=== PATIENT | male | born 1970 | race Caucasian/White ===

== ENCOUNTER → 2016-11-09 | Outpatient (CLI) | payer OTHER | END | disposition home or self-care (01) | LOC: EKG 11:18 | PROVIDERS: ATTEND Internal Medicine Cardiovascular Disease | DX: R00.2 Palpitations (principal) | CPT/HCPCS: 93225 ==

== ENCOUNTER 2017-02-18 09:59 | Observation (INO) | payer OTHER ==
[2017-02-18] VITALS (11 sets, daily range): BP systolic 104–133; BP diastolic 68–96
[~2017-02-18] VITALS: Ht 175.3 cm; Wt 86.2 kg
[2017-02-18 10:40] LABS: HEMATOCRIT 39.8 % (39.0-53.0); HEMOGLOBIN 13.6 g/dL (13.0-17.5); RED BLOOD COUNT 4.56 x10^6/uL (4.30-5.70); WHITE BLOOD COUNT 10.8 x10^3/uL (4.0-11.0)
[2017-02-18 10:41] LABS: RED CELL DISTRIBUTION WIDTH 14.2 % (11.5-14.5)
[2017-02-18] MEDS ORDERED: PRAS10TA9 PO (10:43)
[2017-02-18] MEDS ORDERED: LISI10TA2 PO (10:43)
[2017-02-18] MEDS ORDERED: PANT40TA5 PO (10:45)
[2017-02-18] MEDS ORDERED: BUPR100T11 PO (10:45)
[2017-02-18] MEDS ORDERED: SPIR25TA3 PO (10:46)
[2017-02-18] MEDS ORDERED: ASPI81TA2 PO (10:46)
[2017-02-18] MEDS ORDERED: CARV3.122 PO (10:47)
[2017-02-18] MEDS ORDERED: ATOR40TA59 PO (10:47)
[2017-02-18 10:48] LABS: CALCIUM 9.2 mg/dL (8.5-10.1); CREATININE 1.2 mg/dL (0.7-1.3); GFR 65.8; POTASSIUM 4.4 mmol/L (3.5-5.1)
[2017-02-18 10:51] LABS: PROTHROMBIN TIME PATIENT 12.8 SEC (11.7-14.0)
[2017-02-18] MEDS ORDERED: LIDOCAINE 2% 20 ML VIAL. ONE (12:30)
[2017-02-18] MEDS ORDERED: VERAPAMIL 5 MG/2 ML VIAL. ONE (12:37)
[2017-02-18] MEDS ORDERED: MIDAZOLAM HCL/PF 5 MG/5 ML VIAL. ONE (12:37)
[2017-02-18] MEDS ORDERED: NITROGLYCERIN 200 MCG/2 ML SYRINGE FOR CATH/VASC LAB. ONE (12:37)
[2017-02-18] MEDS ORDERED: HEPARIN for IV BOLUS 10,000 UNIT/10 ML VIAL. ONE (12:37)
[2017-02-18] MEDS ORDERED: fentaNYL PF VIAL 250 MCG/5 ML VIAL ONE (12:37)
[2017-02-18] MEDS ORDERED: BIVALIRUDIN 250 MG VIAL. IV ONE ×2 (12:57→13:30)
[2017-02-18] MEDS ORDERED: IODIXANOL 320 MG/ML 100 ML VIAL. IART ONE ×2 (13:00→13:45)
[2017-02-18] MEDS ORDERED: LIDOCAINE 2% 20 ML VIAL. IJ ONE (13:00)
[2017-02-18] MEDS ORDERED: NITROGLYCERIN 200 MCG/2 ML SYRINGE FOR CATH/VASC LAB. IART ONE (13:00)
[2017-02-18] MEDS ORDERED: HEPARIN for IV BOLUS 10,000 UNIT/10 ML VIAL. IART ONE (13:00)
[2017-02-18] MEDS ORDERED: fentaNYL PF VIAL 250 MCG/5 ML VIAL IV ONE (13:00)
[2017-02-18] MEDS ORDERED: VERAPAMIL 5 MG/2 ML VIAL. IART ONE (13:00)
[2017-02-18] MEDS ORDERED: MIDAZOLAM HCL/PF 5 MG/5 ML VIAL. IV ONE (13:00)
[2017-02-18] MEDS ORDERED: IOHEXOL 300 MG/ML 100ML VIAL. ONE (13:07)
[2017-02-18] MEDS ORDERED: IOHEXOL 300 MG/ML 100ML VIAL. IART ONE (13:15)
[2017-02-18] MEDS ORDERED: ASPIRIN 325 MG TABLET ONE (13:35)
[2017-02-18] MEDS ORDERED: PRASUGREL 10 MG TABLET. ONE (13:35)
[2017-02-18] MEDS ORDERED: ACETAMINOPHEN 325 MG TABLET. PO PRN (13:45)
[2017-02-18] MEDS ORDERED: PRASUGREL 10 MG TABLET. PO ONE (13:45)
[2017-02-18] MEDS ORDERED: NITROGLYCERIN SUBLINGUAL 0.4 MG BOTTLE OF 25. SL PRN (13:45)
[2017-02-18] MEDS ORDERED: ASPIRIN 325 MG TABLET PO ONE (13:45)
--- NOTE | 2017-02-18 14:22 | CARD ---
APPROVED REPORT Procedure(s) performed: 1. Left heart catheterization, selective coronary angiography and left ventr iculography via right transradial approach 2. Successful PCI/drug eluting stents placement to the right coronary and left anterior descending a rteries. INDICATION The indication(s) include : unstable angina . PROCEDURE NARRATIVE After explaining the risks, benefits and alternative options, informed consent was obtained from catherine ent. Patient was brought to the cardiac Collection Systems Administrator and right wrist was prepped and draped in the usual fashion after confirming a positive modified Humberto's test. Arterial access was obtained in the [facility] radial artery and a 6 Lao sheath was inserted. 6 Lao JL 3.5 and 6 Lao John catheter wer e used to perform selective angiography of the left and right coronary arteries. 6 Lao pigtail ca theter was used to perform left ventriculography. The following findings were noted. FINDINGS 1. Hemodynamics: Left ventricular end-diastolic pressure of 34 mmHg. Peak to peak pullback gradient of 20 mmHg across the aortic valve. 2. Left ventriculography: Diaphragmatic wall hypokinesis with ejection fraction estimated at 40-45%. No significant mitral regurgitation seen. 3. Coronary angiography: a. The left main coronary artery arose from the left sinus of Valsalva, gave rise to the left anteri or descending and left circumflex arteries and did not show any significant stenosis. b. The left anterior descending artery showed 70-80% stenosis in the midsegment. c. The left circumflex artery did not show any significant stenosis. d. The right coronary artery was a large and dominant vessel arising from the right sinus of Valsalv a that showed patent stents in the mid to distal segments and also the proximal segments of the poste rior descending and posterolateral branches. The proximal segment however showed 90% stenosis. INTERVENTION The right coronary artery was engaged with a 6 Lao JR4 guide catheter and the stenosis in the prox imal segment was crossed with a 0.014 inch MyNines guidewire. This was treated with a 3.5 x 18 mm Xience Alpine drug-eluting stent was postdilated with a 4.5 x 12 mm NC Trek noncompliant balloon. Follow-up angiography showed resolution of the stenosis to 0% with JIMMIE-3 distal flow. Subsequently, the left main coronary artery was engaged with a 6 Lao EBU 3.0 guide catheter after initial attem pts to engage this with XB 3.5 guide catheter was unsuccessful. The stenosis in left anterior descend ing artery was crossed with the same prowater guidewire and treated successfully with a 3.25 x 23 mm Xience Alpine drug-eluting stent. Follow-up angiography showed resolution of the stenosis to 0% with JIMMIE-3 distal flow. Patient tolerated the procedure well. Hemostasis was achieved using TR band. Ther e were no immediate complications. Conclusion 1. Severe two-vessel coronary artery disease involving the proximal segment of right coronary artery and midsegment of the left anterior descending artery. The previously placed stents in the mid to di stal segments of RCA and the proximal segments of PDA and PLB were patent. 2. Successful PCI/drug eluting stents placement to the right coronary and left anterior descending a rteries. 3. Diaphragmatic wall hypokinesis with ejection fraction estimated at 40-45%. Recommendations 1. Aspirin 325 mg daily 2. Effient 10 mg daily for preferably one year 3. Cardiovascular risk factor modification.
--- NOTE | 2017-02-18 15:52 | PDOC ---
MODERATE SEDATION ASSESSMENT RISKS/ALTERNATIVES Risks/Alternatives Risks and alternatives of this type of sedation and procedure discussed with: RISK/ALTERNATIVES: Patient H & P ON CHART H & P H & P on chart and reviewed for co-morbid conditions and appropriate labs. H&P ON CHART: Yes STATUS PREG STATUS ASSESSED: N/A MEDS/ALLERGIES REVIEWED Meds/Allergies Reviewed Medications and Allergies including time and route of recently administered narcotics and sedatives. MEDS/ALLERGIES REVIEWED: Yes ASA RATING ASA RATING: II AIRWAY ASSESSMENT Airway Assessment Airway patency, oral function limitations, presence of caps, crowns, dentures, partials, and ability to extend neck assessed. AIRWAY ASSESSMENT: Yes MALLAMPATI SCORE MALLAMPATI SCORE: II PRE-SEDATION ASSESSMENT PRE-SEDATION ASSESSMENT: Yes JENNIE COY MD Feb 18, 2017 15:52
[2017-02-18] MEDS: IV 1/2 NORMAL SALINE 1,000 ML IV SCH (15:54)
[2017-02-18] MEDS: CARVEDILOL 3.125 MG TABLET. PO SCH (18:30)
[2017-02-18] MEDS ORDERED: ATORVASTATIN CALCIUM 40 MG TABLET. PO SCH ×2 (21:00)
[2017-02-18] MEDS: buPROPion 100 MG TABLET PO SCH (21:14)
[2017-02-19 03:00] VITALS: BP 112/67
[2017-02-19] MEDS: IV 1/2 NORMAL SALINE 1,000 ML IV SCH (03:30)
[2017-02-19 07:00] VITALS: BP 128/73
[2017-02-19] MEDS ORDERED: PANTOPRAZOLE 40 MG TABLET.DR. PO SCH (07:30)
[2017-02-19] MEDS ORDERED: PRASUGREL 10 MG TABLET. PO SCH (08:00)
[2017-02-19] MEDS ORDERED: ASPIRIN ENTERIC COATED 325 MG TABLET.DR. PO SCH (08:00)
[2017-02-19 08:54] VITALS: BP 128/73
[2017-02-19] MEDS: buPROPion 100 MG TABLET PO SCH (08:58)
[2017-02-19 08:59] VITALS: BP 128/73
[2017-02-19] MEDS: CARVEDILOL 3.125 MG TABLET. PO SCH (08:59)
[2017-02-19] MEDS ORDERED: SPIRONOLACTONE 25 MG TABLET PO SCH (09:00)
[2017-02-19] MEDS ORDERED: LISINOPRIL 10 MG TABLET PO SCH (09:00)
--- NOTE | 2017-02-19 10:49 | PDOC3 ---
Discharge Summary Visit Information Date of Admission: Feb 18, 2017 Date of Discharge: Feb 19, 2017 Admitting Diagnosis: unstable angina Final Diagnosis Problems Medical Problems: (1) Unstable angina pectoris Status: Acute S/P PCI/DEBBIE Brief Hospital Course Allergies Allergies Coded Allergies Type Severity Reaction Last Updated Verified No Known Drug Allergies 02/18/17 No Vital Signs Vital Signs Date Time Temp Pulse Resp B/P Pulse Ox O2 Delivery O2 Flow Rate FiO2 02/19/17 08:59 83 128/73 02/19/17 08:54 19 95 Room Air 02/19/17 08:00 2.0 02/19/17 03:00 98.1 98.1 Lab Results Laboratory Tests Test 02/18/17 10:30 White Blood Count 10.8x10^3/uL (4.0-11.0) Red Blood Count 4.56x10^6/uL (4.30-5.70) Hemoglobin 13.6g/dL (13.0-17.5) Hematocrit 39.8% (39.0-53.0) Mean Corpuscular Volume 87fL (79-100) Mean Corpuscular Hemoglobin 30pg (25-35) Mean Corpuscular Hemoglobin Concent 34g/dL (31-37) Red Cell Distribution Width 14.2% (11.5-14.5) Platelet Count 197x10^3/uL (140-400) Prothrombin Time 12.8SEC (11.7-14.0) Prothromb Time International Ratio 1.0 (0.8-1.1) Sodium Level 138mmol/L (136-145) Potassium Level 4.4mmol/L (3.5-5.1) Chloride Level 103mmol/L (98-107) Carbon Dioxide Level 26mmol/L (21-32) Anion Gap 9 (6-14) Blood Urea Nitrogen 16mg/dL (8-26) Creatinine 1.2mg/dL (0.7-1.3) Estimated GFR (Cockcroft-Gault) 65.8 Glucose Level 136mg/dL (70-99) Calcium Level 9.2mg/dL (8.5-10.1) Brief Hospital Course This is a pleasant 46 yo male admitted for planned C. He was seen in our office and was noted with possible unstable angina symptoms. Prior to this he had 2 episodes PCI/stenting in 2016 with most recent to the RCA. Upon C he has been noted with significant lesions to his RCA and LAD with previously placed patent stents in the mid to distal segments of RCA and the proximal segments of PDA and PLB. PCI/DEBBIE to the proximal segment of RCA and midsegment of the LAD were achieved. Notable EF of 40-45%. Pt tolerated procedure well. I had a long discussion with him in regards to treatment compliance and lifestyle modifications. Pt is to continue effient with ECASA 325 mg. Discussed post cath instructions and continued cardiac rehab. Pt did well overnight, no CP, SOA, and ambulatory without difficulty, SR without significant rhythm ectopies. VSS. Right wrist arteriotomy site intact with no erythema or swelling and neurovascular status is intact as well. Pt is to follow up in our office in 4-5 weeks time. Discharge Information Condition at Discharge: Stable Follow Up: Weeks (4) Disposition/Orders: D/C to Home Scheduled Aspirin (Aspirin Ec) 1 TAB PO DAILY Atorvastatin Calcium (Atorvastatin Calcium) 1 TAB PO QHS (Reported) Bupropion Hcl (Bupropion Hcl) 100 MG PO BID (Reported) Carvedilol (Carvedilol) 1 TAB PO BID (Reported) Lisinopril (Lisinopril) 1 TAB PO DAILY (Reported) Pantoprazole Sodium (Pantoprazole Sodium) 1 TAB PO DAILY (Reported) Prasugrel Hcl (Effient) 10 MG PO DAILY (Reported) Spironolactone (Spironolactone) 1 TAB PO BID (Reported) Discontinued Medications Aspirin (Aspirin) 1 TAB PO DAILY (Reported) Patient Instructions Patient Instructions GENERAL INSTRUCTIONS: 1. Your dressing should be removed prior to leaving the hospital. 2. It is OK to shower the day after your procedure. 3. If you received stents, be sure to carry your stent information card with you in your wallet/purse at all times. 4. Call the office immediately at [phone] if you notice any fever or if there is redness, worsening tenderness/pain, increased bruising, or drainage from the puncture site. 5. Should you have bleeding from the site, lie down immediately & put pressure on the site. The pressure should be hard enough to stop the bleeding. Have the nearest person call [phone]. DO NOT try to drive to the ER with active bleeding. 6. If you notice a change in color, coolness to touch, or loss of feeling in the affected extremity, come to the emergency room. Please have someone drive you or call 911 if no one is available. DO NOT drive yourself. 7. If you normally take glucophage (metformin), please do not take this medicine for 48 hours following your procedure. 8. DO NOT STOP TAKING YOUR PLAVIX OR ASPIRIN UNLESS IT IS CLEARED BY A CASH REGISTER SERVICER OF YOUR SECOND CLASS WELDER AT OUR OFFICE. 9. QUIT SMOKING: the [place] [employer], [employer], & [employer] [employer] have cessation resources available on their websites 10. Please have someone available to drive you home from the hospital as you may be limited by sedation medications given during the procedure. Radial Artery (Wrist) access: 1. No pushing, pulling, lifting, typing, or anything that requires repetitive use/movement of the affected wrist for 3 days following your procedure. 2. OK to drive the day following your procedure. (This is because of effects of sedating medications.) Call the office at [phone] for any questions or concerns. FRANK DEL VALLE [employer]VAGE INS[employer] Feb 19, 2017 10:49
[2017-02-19] MEDS ORDERED: CLOP75TA PO (10:51)
[2017-02-19] MEDS ORDERED: ASPI325T11 PO (10:51)
[2017-02-20] MEDS ORDERED: ASPIRIN CHEWABLE 81 MG TABLET. PO SCH (09:00)
[2017-02-20] MEDS ORDERED: PRASUGREL 10 MG TABLET. PO SCH (09:00)
== END 2017-02-19 12:13 | disposition home or self-care (01) ==
LOC: CCL 09:59 → 2 SOUTH 13:05
PROVIDERS: ADMIT Internal Medicine Cardiovascular Disease; ATTEND Internal Medicine Cardiovascular Disease
DX: I20.0 Unstable angina (principal)
CPT/HCPCS: 36415; 80048; 85027; 85610; 92928; 93458; 96374; 96375; C1769; C1874; C1887; C1892; G0378; G0379; J0583; J2250; J3010; J3490; Q9967

== ENCOUNTER → 2018-06-07 | Outpatient (CLI) | payer OTHER ==
[~2018-06-07] MED LIST: IOHEXOL 300 MG/ML 100ML VIAL.; MIDAZOLAM HCL/PF 2 MG/2 ML VIAL.; fentaNYL PF VIAL 100 MCG/2 ML VIAL
== END | disposition home or self-care (01) ==
LOC: US 07:57
DX: I70.293 Other atherosclerosis of native arteries of extremities, bilateral legs (principal); I10 Essential (primary) hypertension; I25.10 Atherosclerotic heart disease of native coronary artery without angina pectoris; Z95.5 Presence of coronary angioplasty implant and graft
CPT/HCPCS: 93925

== ENCOUNTER 2018-06-09 09:33 | Outpatient (CLI) | payer OTHER ==
[2018-06-09] MEDS ORDERED: LIDOCAINE 1% PF 30 ML VIAL. (09:38)
[2018-06-09 10:04] LABS: HEMATOCRIT 43.4 % (39.0-53.0); HEMOGLOBIN 15.2 g/dL (13.0-17.5); MEAN CORPUSCULAR HEMOGLOBIN 31 pg (25-35); MEAN CORPUSCULAR HGB CONC 35 g/dL (31-37); MEAN CORPUSCULAR VOLUME 90 fL (79-100); PLATELET COUNT 193 x10^3/uL (140-400); RED BLOOD COUNT 4.85 x10^6/uL (4.30-5.70); RED CELL DISTRIBUTION WIDTH 12.6 % (11.5-14.5); WHITE BLOOD COUNT 8.7 x10^3/uL (4.0-11.0)
[2018-06-09 10:09] LABS: PARTIAL THROMBOPLASTIN TIME 26 SEC (24-38); PROTHROMBIN TIME PATIENT 13.1 SEC (11.7-14.0)
[2018-06-09 10:15] LABS: ANION GAP 8 (6-14); BLOOD UREA NITROGEN 15 mg/dL (8-26); CALCIUM 8.9 mg/dL (8.5-10.1); CARBON DIOXIDE 27 mmol/L (21-32); CHLORIDE 104 mmol/L (98-107); GFR 80.8; GLUCOSE 126 mg/dL (70-99); SODIUM 139 mmol/L (136-145)
[2018-06-09] MEDS: IOHEXOL 300 MG/ML 100ML VIAL. IART (12:00)
[2018-06-09] MEDS: MIDAZOLAM HCL/PF 2 MG/2 ML VIAL. IV (12:00)
[2018-06-09] MEDS: VERAPAMIL 5 MG/2 ML VIAL. IART (12:00)
[2018-06-09] MEDS: fentaNYL PF VIAL 100 MCG/2 ML VIAL IV (12:00)
[2018-06-09] MEDS: LIDOCAINE 1% PF 2 ML VIAL. INJ (12:00)
[2018-06-09] MEDS: HEPARIN for IV BOLUS 10,000 UNIT/10 ML VIAL. IART (12:00)
[2018-06-09] MEDS: NITROGLYCERIN 200 MCG/2 ML SYRINGE FOR CATH/VASC LAB. IART (12:00)
[2018-06-09] MEDS ORDERED: CONTRAST GIVEN. MC (12:15)
[2018-06-09] MEDS: IV 1/2 NORMAL SALINE 1,000 ML IV (13:40)
== END 2018-06-09 16:15 | disposition home or self-care (01) ==
LOC: ECHO 09:33
DX: I25.110 Atherosclerotic heart disease of native coronary artery with unstable angina pectoris (principal); I25.5 Ischemic cardiomyopathy; I10 Essential (primary) hypertension; Z95.5 Presence of coronary angioplasty implant and graft
CPT/HCPCS: 36415; 80048; 85027; 85610; 85730; 93306; 93458; 99152; C1769; C1892; J1644; J2250; J3010; J3490; Q9967

== ENCOUNTER 2019-04-01 02:07 | Inpatient (IN) | payer OTHER, SELFPAY ==
[~2019-04-01] VITALS: Ht 175.3 cm; Wt 79.9 kg
[2019-04-01] VITALS (17 sets, daily range): BP systolic 112–155; BP diastolic 52–88
[~2019-04-01 02:07] MED LIST changes: +ALBU2.5V8 INH; +ASPI-630 PO; +ASPI325T11 PO; +ATOR40TA59 PO; +BUPR100T11 PO; +BUPR150T8 PO; +CARV3.1210 PO; +CLOP75TA PO; -IOHEXOL 300 MG/ML 100ML VIAL.; +LISI10TA2 PO; -MIDAZOLAM HCL/PF 2 MG/2 ML VIAL.; +PANT40TA5 PO; +PRAS10TA9 PO; +SPIR25TA5 PO; -fentaNYL PF VIAL 100 MCG/2 ML VIAL
[2019-04-01] MEDS ORDERED: IV NORMAL SALINE 1000ML BAG 1,000 ML IV ONE (02:30)
[2019-04-01 04:06] LABS: BASO % 0 % (0-3); EOS # 0.2 x10^3/uL (0.0-0.7); EOS % 2 % (0-3); HEMOGLOBIN 14.6 g/dL (13.0-17.5); LYMPH # 1.5 x10^3/uL (1.0-4.8); LYMPH % 14 % (24-48); MEAN CORPUSCULAR HEMOGLOBIN 31 pg (25-35); MEAN CORPUSCULAR HGB CONC 35 g/dL (31-37); MEAN CORPUSCULAR VOLUME 88 fL (79-100); MONO # 0.5 x10^3/uL (0.0-1.1); MONO % 5 % (0-9); NEUT # 8.2 x10^3uL (1.8-7.7); NEUT % 78 % (31-73); PLATELET COUNT 178 x10^3/uL (140-400); RED BLOOD COUNT 4.76 x10^6/uL (4.30-5.70); RED CELL DISTRIBUTION WIDTH 13.7 % (11.5-14.5); WHITE BLOOD COUNT 10.5 x10^3/uL (4.0-11.0)
[2019-04-01 04:26] LABS: PROTHROMBIN TIME PATIENT 13.7 SEC (11.7-14.0)
[2019-04-01 04:28] LABS: CALCIUM 8.6 mg/dL (8.5-10.1); CREATININE 0.9 mg/dL (0.7-1.3); GFR 90.8; POTASSIUM 3.6 mmol/L (3.5-5.1)
[2019-04-01 04:34] LABS: ALBUMIN 3.7 g/dL (3.4-5.0); ALBUMIN/GLOBULIN RATIO 0.9 (1.0-1.7); MAGNESIUM 1.9 mg/dL (1.8-2.4); TOTAL BILIRUBIN 0.3 mg/dL (0.2-1.0); TOTAL PROTEIN 7.7 g/dL (6.4-8.2)
[2019-04-01 05:02] LABS: BARBITURATES NEG (NEG); BENZODIAZEPINES NEG (NEG); CANNABINOIDS NEG (NEG); COCAINE NEG (NEG); METHADONE NEG (NEG); OPIATES NEG (NEG); PHENCYCLIDINE NEG (NEG)
[2019-04-01 05:03] LABS: AMPHETAMINE/METHAMPHETAMINE NEG (NEG)
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
--- NOTE | 2019-04-01 07:49 | RAD ---
Examination: CT head and cervical spine without contrast History: Blunt trauma Comparison: None available Technique: Axial CT images of the head and cervical spine were performed without contrast. Coronal and sagittal reformats of the cervical spine were performed. PQRS Compliance Statement: One or more of the following individualized dose reduction techniques were utilized for this examination: 1. Automated exposure control 2. Adjustment of the mA and/or kV according to patient size 3. Use of iterative reconstruction technique Findings: There is no evidence of midline shift. There is mild hyperdensity identified in the subarachnoid space off for a right, left frontal lobes likely mild subarachnoid bleed with small amount of blood in the anterior falx and right frontal subdural space likely bleed. Punctate foci of bleed identified in the right and left frontal lobes likely tiny foci of parenchymal bleed. The lateral ventricles, third ventricle, fourth ventricle are proper for age. The basal cisterns are uneffaced There is nondisplaced vertical fracture of the right occipital skull bone extending inferiorly to the foramen magnum region on the right. The cervical vertebral body heights are maintained. The bilateral facets are well aligned. There is mild intervertebral disc height loss identified in the cervical spine particularly at C5-C6, C6-C7 vertebral level. No evidence of prevertebral soft tissue swelling identified. Impression: 1. Mild subarachnoid bleed in the bilateral frontal lobes with the minimal subdural bleed in the right extra-axial frontal region and the anterior falx region. Tiny punctate foci of intraparenchymal bleed identified in the right and left frontal lobes probably secondary to injury. 2. Nondisplaced fracture of the right occipital skull bone. No obvious acute fracture of the cervical spine. Correlate clinically. was informed at time of dictation.
--- NOTE | 2019-04-01 07:53 | RAD ---
Examination: CT maxillofacial bones without contrast History: History of injury Comparison: None available PQRS Compliance Statement: One or more of the following individualized dose reduction techniques were utilized for this examination: 1. Automated exposure control 2. Adjustment of the mA and/or kV according to patient size 3. Use of iterative reconstruction technique Findings: Mild nondisplaced fracture of the left nasal bone identified. The bilateral orbital globes appear intact. The bilateral orbital blount appear intact. The visualized paranasal sinuses, mastoid air cells are clear. The partially visualized right occipital skull bone fracture identified. The bilateral pterygoid plates, zygomatic arches appear intact. Lucencies identified in the mandibular and maxillary teeth likely dental disease. Impression: 1. Nondisplaced fracture of the left nasal bone. 2. Partially visualized right occipital skull bone nondisplaced fracture.
[2019-04-01] MEDS ORDERED: DIPHTH,PERTUSS(ACELL),TET TOX 0.5 ML DISP.SYRIN. VAX IM ONE (08:00)
[2019-04-01] MEDS ORDERED: IV NORMAL SALINE 1000ML BAG 1,000 ML IV SCH (08:35)
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
[2019-04-01] MEDS: HYDROcodone/APAP 7.5/325MG 1 TAB TABLET PO PRN ×2 (13:26→18:01)
[2019-04-01] MEDS ORDERED: MULTIVIT INFUSN,ADULT 4,VIT K 10 ML, THIAMINE INJ 100 MG, FOLIC ACID INJ 1 MG in IV NOR... IV ONE (13:30)
[2019-04-01] MEDS: NICOTINE 14MG PATCH. TD SCH (13:31)
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
--- NOTE | 2019-04-01 19:42 | NUR ---
banana bag per order w NS held till infused. Remains NPO
--- NOTE | 2019-04-01 20:24 | NUR ---
Nurse encouraged Pt to allow SCD's and Richardson hose to be put on. Pt refused stating "Those will drive me crazy." Pt told of importance of wearing these for VTE. Pt still refused.
[2019-04-02] VITALS (17 sets, daily range): BP systolic 114–163; BP diastolic 74–94
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
[2019-04-02] MEDS ORDERED: ALBUTEROL SULFATE 2.5 MG/3 ML NEBU. INH PRN (08:00)
[2019-04-02] MEDS: LISINOPRIL 10 MG TABLET PO SCH (09:43)
[2019-04-02] MEDS: CARVEDILOL 3.125 MG TABLET. PO SCH ×2 (09:43→18:01)
[2019-04-02] MEDS: PANTOPRAZOLE 40 MG TABLET.DR. PO SCH (09:43)
[2019-04-02] MEDS: SPIRONOLACTONE 25 MG TABLET PO SCH ×2 (09:44→20:46)
[2019-04-02] MEDS: buPROPion SR 150 MG TABLET.SA PO SCH ×2 (09:44→20:46)
[2019-04-02] MEDS: NICOTINE 14MG PATCH. TD SCH (09:44)
--- NOTE | 2019-04-02 11:53 | NUR ---
Bedside swallow evaluation and communication evaluation completed. Please refer to full reports for additional information. Impressions: Swallow: Oropharyngeal swallow appears function w/ low risk of aspiration anticipated for regular diet and thin liquids w/ general swallow precautions. Pt takes very large bites/drinks at times and would benefit from cues/reminders for general swallow precautions. Communication: Mild cognitive impairment w/ delayed and short term memory deficits. Speech/language and communication generally WFL. Pt and family report pt had some deficits in memory prior to this admission but feel memory is currently "a bit worse." Recommendations: When pt cleared by physician for diet recommend regular diet w/ thin liquids and general swallow precautions. ST for dysphagia f/u 1-2 visits for ongoing assessment of swallow safety. Additional ST f/u for cognitive deficits. D/w pt and family. D/w RN w/ plans for RN to d/ results w/ physician prior to starting diet.
--- NOTE | 2019-04-02 13:06 | RAD ---
EXAM: CT HEAD WITHOUT CONTRAST. HISTORY: Intracranial hemorrhage. TECHNIQUE: Computed tomography of the head was performed without intravenous contrast. COMPARISON: 04/01/2019. FINDINGS: A small amount of intraparenchymal hemorrhage is again noted along the anteroinferior aspect of the right frontal lobe suggesting a contusion. A small amount of intrahemispheric clot along the gyri recti posteriorly appears decreased. Mild mass effect consistent with edema is suspected along the right inferior frontal lobe. Rowe-white differentiation is preserved elsewhere. The ventricles are normal in size and position. The visualized paranasal sinuses appear clear. The orbits are unremarkable. The temporal bones are unremarkable. A nondisplaced right occipital fracture intersects the right lateral aspect of the foramen magnum. There is a small occipitoparietal scalp hematoma. IMPRESSION: 1. Stable bilateral inferior frontal contusions demonstrate a small amount of hemorrhage and mass effect. 2. A small amount of subarachnoid hemorrhage in the frontal interhemispheric fissure appears decreased. 3. Nondisplaced right occipital bone fracture. *One or more of the following individualized dose reduction techniques were utilized for this examination: 1. Automated exposure control. 2. Adjustment of the mA and/or kV according to patient size. 3. Use of iterative reconstruction technique. Electronically signed by: Jonathan Alberts MD (04/02/2019 1:04 PM) [facility]
--- NOTE | 2019-04-02 14:01 | NUR ---
Gene's office notified that CT head results in from AM scan- currently Gene in surgery, office noted they would notify him when out. Will continue current plan of care until can be cleared from neurosurgeon to eat.
--- NOTE | 2019-04-02 14:12 | NUR ---
Call received from Gene's office- patient okay to eat, and is okay to transfer to medical unit.
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
[2019-04-02] MEDS: HYDROcodone/APAP 7.5/325MG 1 TAB TABLET PO PRN (18:04)
[2019-04-02] MEDS ORDERED: ATORVASTATIN CALCIUM 40 MG TABLET. PO SCH (21:00)
[2019-04-03 03:50] VITALS: BP 124/74
[2019-04-03 07:00] VITALS: BP 137/81
[2019-04-03] MEDS: buPROPion SR 150 MG TABLET.SA PO SCH (08:18)
[2019-04-03] MEDS: CARVEDILOL 3.125 MG TABLET. PO SCH (08:18)
[2019-04-03] MEDS: LISINOPRIL 10 MG TABLET PO SCH (08:18)
[2019-04-03] MEDS: PANTOPRAZOLE 40 MG TABLET.DR. PO SCH (08:18)
[2019-04-03] MEDS: SPIRONOLACTONE 25 MG TABLET PO SCH (08:18)
[2019-04-03] MEDS: HYDROcodone/APAP 7.5/325MG 1 TAB TABLET PO PRN (08:19)
[2019-04-03] MEDS: NICOTINE 14MG PATCH. TD SCH (08:19)
[2019-04-03 11:00] VITALS: BP 119/77
[2019-04-03] MEDS ORDERED: ATOR40TA59 PO (12:59)
[2019-04-03] MEDS ORDERED: ASPI325T11 PO (12:59)
[2019-04-03] MEDS ORDERED: HYDR-2765 PO (12:59)
[2019-04-03] MEDS ORDERED: CARV3.1210 PO (12:59)
[2019-04-03] MEDS ORDERED: DOCUSATE SODIUM 100 MG CAPSULE. PO ONE (13:00)
[2019-04-03] MEDS ORDERED: DOCU-109 PO (13:00)
[2019-04-03] MEDS ORDERED: SENNOSIDES/DOCUSATE 8.6/50MG TABLET. PO ONE (13:00)
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
--- NOTE | 2019-04-03 14:27 | NUR ---
Pt discharged home with self care. Spoke to JOHANNA Caldwell she stated she will call and schedule a follow up CT with patient. IV removed. Discharge instructions and prescriptions discussed. Pt verbalized understanding. Pt taken via wheelchair to main entrance and was secured in vehicle with family member.
== END 2019-04-03 14:15 | disposition home or self-care (01) | DRG 84 ==
LOC: ER 02:07 → 1 WEST ICU 08:05 → 4 NORTH 04-02 16:11
PROVIDERS: ADMIT Internal Medicine; ATTEND Internal Medicine
DX: S06.6X9A Traumatic subarachnoid hemorrhage with loss of consciousness of unspecified duration, initial encounter (principal); S02.119A Unspecified fracture of occiput, initial encounter for closed fracture; F07.81 Postconcussional syndrome; S02.2XXA Fracture of nasal bones, initial encounter for closed fracture; R73.9 Hyperglycemia, unspecified; F10.129 Alcohol abuse with intoxication, unspecified; I25.10 Atherosclerotic heart disease of native coronary artery without angina pectoris; I11.0 Hypertensive heart disease with heart failure; I73.9 Peripheral vascular disease, unspecified; S00.93XA Contusion of unspecified part of head, initial encounter; S81.012A Laceration without foreign body, left knee, initial encounter; X58.XXXA Exposure to other specified factors, initial encounter; Z82.49 Family history of ischemic heart disease and other diseases of the circulatory system; Z87.891 Personal history of nicotine dependence; Z95.5 Presence of coronary angioplasty implant and graft; Y08.89XA Assault by other specified means, initial encounter; Y93.89 Activity, other specified; Y92.89 Other specified places as the place of occurrence of the external cause; Y99.8 Other external cause status; I50.9 Heart failure, unspecified
CPT/HCPCS: 36415; 70450; 70486; 72125; 80053; 80307; 83735; 85025; 85610; 85730; 87641; 90471; 90715; 99291; G0480; J7030; 92523; 92610; 97530

== ENCOUNTER 2020-06-17 05:32 | Inpatient (IN) | payer MEDICAID, OTHER ==
[2020-06-17] VITALS (15 sets, daily range): BP systolic 102–161; BP diastolic 61–84
[~2020-06-17] VITALS: Ht 175.3 cm; Wt 83.9 kg
[~2020-06-17 05:32] MED LIST changes: +CYCL10TA2 PO; +DOCU-109 PO; +HYDR-2765 PO; +NITR0.4T24 SL; -PANT40TA5 PO; +PANT40TA77 PO
[2020-06-17 06:27] LABS: BASO % 0 % (0-3); EOS # 0.4 x10^3/uL (0.0-0.7); EOS % 6 % (0-3); HEMOGLOBIN 15.5 g/dL (13.0-17.5); LYMPH # 2.1 x10^3/uL (1.0-4.8); LYMPH % 27 % (24-48); MEAN CORPUSCULAR HEMOGLOBIN 31 pg (25-35); MEAN CORPUSCULAR HGB CONC 34 g/dL (31-37); MEAN CORPUSCULAR VOLUME 91 fL (79-100); MONO # 0.7 x10^3/uL (0.0-1.1); MONO % 9 % (0-9); NEUT # 4.5 x10^3/uL (1.8-7.7); NEUT % 58 % (31-73); PLATELET COUNT 173 x10^3/uL (140-400); RED BLOOD COUNT 4.93 x10^6/uL (4.30-5.70); RED CELL DISTRIBUTION WIDTH 13.4 % (11.5-14.5); WHITE BLOOD COUNT 7.8 x10^3/uL (4.0-11.0)
[2020-06-17] MEDS ORDERED: NITROGLYCERIN OINT 1 GM PACKET. TP ONE (06:30)
[2020-06-17] MEDS ORDERED: ASPIRIN CHEWABLE 81 MG TABLET. PO ONE (06:30)
[2020-06-17 06:39] LABS: CREATININE 0.9 mg/dL (0.7-1.3); GFR 90.4; POTASSIUM 3.7 mmol/L (3.5-5.1)
--- NOTE | 2020-06-17 06:40 | RAD ---
INDICATION: Reason: chest pain / Spl. Instructions: / History: COMPARISON: November 14, 2019 FINDINGS: Single view of chest obtained. Hypoexpanded exam. Cardiac silhouette is mildly enlarged. Linear opacity left lower lung could be secondary to atelectasis. No definite consolidation elsewhere in the lungs. IMPRESSION: * Enlarged cardiac silhouette with linear atelectasis left lung base. Electronically signed by: Sabino Canchola MD (06/17/2020 6:37 AM) [id number]
[2020-06-17 06:45] LABS: PROTHROMBIN TIME PATIENT 12.2 SEC (11.7-14.0)
[2020-06-17 06:49] LABS: ALBUMIN 3.4 g/dL (3.4-5.0); ALBUMIN/GLOBULIN RATIO 0.9 (1.0-1.7); TOTAL BILIRUBIN 0.2 mg/dL (0.2-1.0); TOTAL PROTEIN 7.3 g/dL (6.4-8.2)
[2020-06-17] MEDS ORDERED: HEPARIN for IV BOLUS 10,000 UNIT/10 ML VIAL. IV ONE (07:00)
[2020-06-17] MEDS ORDERED: HEPARIN 25,000UTS/250ML PREMIX 250 ML IV PRN (07:00)
--- NOTE | 2020-06-17 07:23 | EKG ---
[facility] [address] [place] [address] Test Date: 2020-06-17 Test Time: 05:35:24 Pat Name: SAMSON HOPKINS Department: Room: Gender: M [employer] Supervisor: : 1970 Requested By: VI GUTIERREZ Order Number: [id number] Reading MD: Measurements Intervals [place] Rate: 73 P: 46 NH: 148 QRS: -40 QRSD: 80 T: 136 QT: 416 QTc: 462 Interpretive Statements SINUS RHYTHM CONSIDER LEFT VENTRICULAR HYPERTROPHY QRS(T) CONTOUR ABNORMALITY CONSIDER ANTEROSEPTAL MYOCARDIAL DAMAGE CONSISTENT WITH INFERIOR INFARCT PROBABLY OLD T ABNORMALITY IN ANTERIOR LEADS LATERAL LEADS ABNORMAL ECG RI6.01 No previous ECG available for comparison
[2020-06-17] MEDS ORDERED: fentaNYL PF VIAL 100 MCG/2 ML VIAL IV PRN (07:45)
[2020-06-17] MEDS ORDERED: ONDANSETRON PF 4 MG/2 ML VIAL. IV PRN (07:45)
--- NOTE | 2020-06-17 08:04 | PHYS DOC ---
Past Medical History Past Medical History: CAD, Hypertension Past Surgical History: Other Additional Past Surgical Histo: CARDIAC STENTS Smoking Status: Current Every Day Smoker Alcohol Use: Heavy Drug Use: None General Adult EDM: Chief Complaint: CHEST PAIN HPI: HPI: Patient is a 49-year-old male with a history of coronary disease status post cardiac stents x9 who continues to smoke. Patient presents today with chest discomfort. He states the pain is in his left chest and is typical of his previous chest pain requiring stenting. He does state he has been out rowing a canoe on the [place] recently and developed some pain with that as well. He denies any significant shortness of breath. He has not had any nausea or diaphoresis. He did take nitroglycerin x2 at home with minimal relief. He states during the night his laid her head on his chest and he states that her head felt like it was a ton of bricks.] Review of Systems: Review of Systems: Constitutional: Denies fever or chills. [] Eyes: Denies change in visual acuity. [] HENT: Denies nasal congestion or sore throat. [] Respiratory: Denies cough or shortness of breath. [] Cardiovascular: Per HPI [] GI: Denies abdominal pain, nausea, vomiting, bloody stools or diarrhea. [] : Denies dysuria. [] Musculoskeletal: Denies back pain or joint pain. [] Integument: Denies rash. [] Neurologic: Denies headache, focal weakness or sensory changes. [] Endocrine: Denies polyuria or polydipsia. [] Lymphatic: Denies swollen glands. [] Psychiatric: Denies depression or anxiety. [] Heart Score: HEART Score for Chest Pain: HEART Score for Chest Pain Response (Comments) Value History Highly Suspicious 2 ECG Nonspecific Repolarizatio 1 Age < 45 0 Risk Factors >3 Risk Factors or Hx CAD 2 Troponin >1-<3x Normal Limit 1 Total 6 Risk Factors: Risk Factors: DM, Current or recent (<one month) smoker, HTN, HLP, family history of CAD, obesity. Risk Scores: Score 0 - 3: 2.5% MACE over next 6 weeks - Discharge Home Score 4 - 6: 20.3% MACE over next 6 weeks - Admit for Clinical Observation Score 7 - 10: 72.7% MACE over next 6 weeks - Early Invasive Strategies Current Medications: Current Medications Medications (Trade) Dose Ordered Sig/[facility] Start Time Stop Time Status Last Admin Dose Admin Aspirin (Aspirin Chewable) 324 mg 1X ONCE 06/17/20 06:30 06/17/20 06:31 DC 06/17/20 07:24 324 MG Fentanyl Citrate (Fentanyl 2ml Vial) 50 mcg PRN Q1HR PRN 06/17/20 07:45 06/18/20 07:44 Heparin Sodium (Porcine) (Heparin Sodium) 4,000 unit 1X ONCE 06/17/20 07:00 06/17/20 07:04 DC 06/17/20 07:28 4,000 UNIT Heparin Sodium/ Dextrose 250 ml @ 10.032 mls/ hr CONT PRN 06/17/20 07:00 06/17/20 07:30 10.032 MLS/HR Nitroglycerin (Nitro-Bid Oint) 1 inch 1X ONCE 06/17/20 06:30 06/17/20 06:31 DC 06/17/20 07:25 1 INCH Ondansetron HCl (Zofran) 4 mg PRN Q8HRS PRN 06/17/20 07:45 06/18/20 07:44 Allergies: Allergies: Allergies Coded Allergies Type Severity Reaction Last Updated Verified No Known Drug Allergies 02/18/17 No Physical Exam: PE: Constitutional: Well developed, well nourished, mild to moderate distress, non- toxic appearance. [] HENT: Normocephalic, atraumatic, bilateral external ears normal, oropharynx mo ist, no oral exudates, nose normal. [] Eyes: PERRLA, EOMI, conjunctiva normal, no discharge. [] Neck: Normal range of motion, no tenderness, supple, no stridor. [] Cardiovascular:Heart rate regular rhythm, no murmur [] Lungs & Thorax: Bilateral breath sounds clear to auscultation [] Abdomen: Bowel sounds normal, soft, no tenderness, no masses, no pulsatile masses. [] Skin: Warm, dry, no erythema, no rash. [] Back: No tenderness, no CVA tenderness. [] Extremities: No tenderness, no cyanosis, no clubbing, ROM intact, no edema. [] Neurologic: Alert and oriented X 3, normal motor function, normal sensory function, no focal deficits noted. [] Psychologic: Anxious [] Current Patient Data: Labs: Laboratory Tests Test 06/17/20 05:43 White Blood Count 7.8 x10^3/uL (4.0-11.0) Red Blood Count 4.93 x10^6/uL (4.30-5.70) Hemoglobin 15.5 g/dL (13.0-17.5) Hematocrit 45.0 % (39.0-53.0) Mean Corpuscular Volume 91 fL (79-100) Mean Corpuscular Hemoglobin 31 pg (25-35) Mean Corpuscular Hemoglobin Concent 34 g/dL (31-37) Red Cell Distribution Width 13.4 % (11.5-14.5) Platelet Count 173 x10^3/uL (140-400) Neutrophils (%) (Auto) 58 % (31-73) Lymphocytes (%) (Auto) 27 % (24-48) Monocytes (%) (Auto) 9 % (0-9) Eosinophils (%) (Auto) 6 % (0-3) H Basophils (%) (Auto) 0 % (0-3) Neutrophils # (Auto) 4.5 x10^3/uL (1.8-7.7) Lymphocytes # (Auto) 2.1 x10^3/uL (1.0-4.8) Monocytes # (Auto) 0.7 x10^3/uL (0.0-1.1) Eosinophils # (Auto) 0.4 x10^3/uL (0.0-0.7) Basophils # (Auto) 0.0 x10^3/uL (0.0-0.2) Prothrombin Time 12.2 SEC (11.7-14.0) Prothrombin Time INR 0.9 (0.8-1.1) Sodium Level 138 mmol/L (136-145) Potassium Level 3.7 mmol/L (3.5-5.1) Chloride Level 101 mmol/L (98-107) Carbon Dioxide Level 26 mmol/L (21-32) Anion Gap 11 (6-14) Blood Urea Nitrogen 14 mg/dL (8-26) Creatinine 0.9 mg/dL (0.7-1.3) Estimated GFR (Cockcroft-Gault) 90.4 BUN/Creatinine Ratio 16 (6-20) Glucose Level 179 mg/dL (70-99) H Calcium Level 9.0 mg/dL (8.5-10.1) Total Bilirubin 0.2 mg/dL (0.2-1.0) Aspartate Amino Transferase (AST) 22 U/L (15-37) Alanine Aminotransferase (ALT) 39 U/L (16-63) Alkaline Phosphatase 90 U/L (46-116) Troponin I Quantitative 0.061 ng/mL (0.000-0.055) Total Protein 7.3 g/dL (6.4-8.2) Albumin 3.4 g/dL (3.4-5.0) Albumin/Globulin Ratio 0.9 (1.0-1.7) L Laboratory Tests 06/17/20 05:43 Laboratory Tests 06/17/20 05:43 Vital Signs: Vital Signs Date Time Temp Pulse Resp B/P (MAP) Pulse Ox O2 Delivery O2 Flow Rate FiO2 06/17/20 07:25 74 114/83 EKG: EKG: EKG: Normal sinus rhythm rate of 70 with anterior lateral T wave inversions [] Radiology/Procedures: Radiology/Procedures: [] Impression: PROCEDURE: CHEST AP ONLY INDICATION: Reason: chest pain / Spl. Instructions: / History: COMPARISON: November 14, 2019 FINDINGS: Single view of chest obtained. Hypoexpanded exam. Cardiac silhouette is mildly enlarged. Linear opacity left lower lung could be secondary to atelectasis. No definite consolidation elsewhere in the lungs. IMPRESSION: * Enlarged cardiac silhouette with linear atelectasis left lung base. Course & Med Decision Making: Course & Med Decision Making Pertinent Labs and Imaging studies reviewed. (See chart for details) [ED course: Evaluation reveals a 49-year-old male with coronary disease who presents with typical sounding chest pain heart score 6. Nitropaste was placed patient was also started on heparin drip I talked with the kiss mixer who states that he will likely have a heart cath today. CRITICAL CARE: Time spent was 35 minutes. This includes medical management, evaluation, reevaluation, discussion with consultants and family. Critical Care does NOT include time spent on separately billed procedures.] Dragon Disclaimer: Dragon Disclaimer: This electronic medical record was generated, in whole or in part, using a voice recognition dictation system. Departure Departure Impression: Primary Impression: Unstable angina pectoris Disposition: ADMITTED INPATIENT Admitting Physician: LITO Condition: GUARDED Referrals: NO PCP (PCP) Justicifation of Admission Dx: Justifications for Admission: Justification of Admission Dx: Yes Angina: Unstable Variant VI GUTIERREZ DO Jun 17, 2020 08:04
--- NOTE | 2020-06-17 08:33 | PDOC2 ---
FRANK DEL VALLE ELECTRICIAN RADIO 06/17/20 0833: CARDIAC CONSULT DATE OF CONSULT Date of Consult DATE: 06/17/20 TIME: 08:23 REASON FOR CONSULT Reason for Consult: ACS REFERRING PHYSICIAN Referring Physician: Shirley SOURCE Source: Chart review, Patient HISTORY OF PRESENT ILLNESS HISTORY OF PRESENT ILLNESS This is a pleasant 49 yo male admitted for complains of chest pain. Reports that this is pressure that started about 430 AM and took 2 NTG without significnat relief. He finally has NTG paste which is helping but stil., has some discomfort. No nausea or diaphoresis but with some SOA. Denies any palpitations. or dizziness. No recent falls or injury. This pain is similar when he had his IN. Reports that he stopped taking all of his medications except for PRN dosing of ASA 2 months ago since he ran out of meds and no insurance and could not afford it and his family could not help him anymore. He just finally got his health insurance Tuesday. He continues to smoke tobacco but no recreational drug use. No leg edema, PND nor orthopnea. PAST MEDICAL HISTORY Past Medical History Cardiovascular: CHF, HTN, IN, Hyperlipidemia, Other (Vfib; ICM), CHF CENTRAL NERVOUS SYSTEM: Other (traumatic SAH with no surgery) GI: GERD Heme/Onc: No pertinent hx Hepatobiliary: No pertinent hx Musculoskeletal: Osteoarthritis Dermatology: No pertinent hx PAST SURGICAL HISTORY Past Surgical History Arthroscopy (shoulder), Other (PCI ) FAMILY HISTORY Family History: Coronary Artery Disease SOCIAL HISTORY Smoke: <1 pack per day ALCOHOL: none Drugs: None Lives: with Family CURRENT MEDICATIONS CURRENT MEDICATIONS Current Medications Medications (Trade) Dose Ordered Sig/Leila Route PRN Reason Start Time Stop Time Status Last Admin Dose Admin Aspirin (Aspirin Chewable) 324 mg 1X ONCE PO 06/17/20 06:30 06/17/20 06:31 DC 06/17/20 07:24 Nitroglycerin (Nitro-Bid Oint) 1 inch 1X ONCE TP 06/17/20 06:30 06/17/20 06:31 DC 06/17/20 07:25 Heparin Sodium (Porcine) (Heparin Sodium) 4,000 unit 1X ONCE IV 06/17/20 07:00 06/17/20 07:04 DC 06/17/20 07:28 Heparin Sodium/ Dextrose 250 ml @ 10.032 mls/ hr CONT PRN IV PER PROTOCOL 06/17/20 07:00 06/17/20 07:30 ALLERGIES ALLERGIES: Coded Allergies: No Known Drug Allergies (Unverified , 02/18/17) ROS Review of System 14 point ROS evaluated with pertinent positives noted per HPI PHYSICAL EXAM General: Alert, Oriented X3, Cooperative, No acute distress HEENT: Atraumatic, Mucous membr. moist/pink Lungs: Clear to auscultation, Normal air movement Heart: Regular rate (SR), Normal S1, Normal S2, No murmurs Abdomen: Soft, No tenderness Extremities: No cyanosis, No edema Skin: No breakdown, No significant lesion Neuro: Normal speech, Sensation intact Psych/Mental Status: Mental status NL, Mood NL MUSCULOSKELETAL: Osteoarthritic changes both hands VITALS/I&O VITALS/I&O: Vital Signs Date Time Temp Pulse Resp B/P (MAP) Pulse Ox O2 Delivery O2 Flow Rate FiO2 06/17/20 07:25 74 114/83 06/17/20 07:00 18 98 Room Air 06/17/20 05:35 98.9 98.9 LABS Lab: Laboratory Tests Test 06/17/20 05:43 White Blood Count 7.8 x10^3/uL (4.0-11.0) Red Blood Count 4.93 x10^6/uL (4.30-5.70) Hemoglobin 15.5 g/dL (13.0-17.5) Hematocrit 45.0 % (39.0-53.0) Mean Corpuscular Volume 91 fL (79-100) Mean Corpuscular Hemoglobin 31 pg (25-35) Mean Corpuscular Hemoglobin Concent 34 g/dL (31-37) Red Cell Distribution Width 13.4 % (11.5-14.5) Platelet Count 173 x10^3/uL (140-400) Neutrophils (%) (Auto) 58 % (31-73) Lymphocytes (%) (Auto) 27 % (24-48) Monocytes (%) (Auto) 9 % (0-9) Eosinophils (%) (Auto) 6 % (0-3) H Basophils (%) (Auto) 0 % (0-3) Neutrophils # (Auto) 4.5 x10^3/uL (1.8-7.7) Lymphocytes # (Auto) 2.1 x10^3/uL (1.0-4.8) Monocytes # (Auto) 0.7 x10^3/uL (0.0-1.1) Eosinophils # (Auto) 0.4 x10^3/uL (0.0-0.7) Basophils # (Auto) 0.0 x10^3/uL (0.0-0.2) Prothrombin Time 12.2 SEC (11.7-14.0) Prothrombin Time INR 0.9 (0.8-1.1) Sodium Level 138 mmol/L (136-145) Potassium Level 3.7 mmol/L (3.5-5.1) Chloride Level 101 mmol/L (98-107) Carbon Dioxide Level 26 mmol/L (21-32) Anion Gap 11 (6-14) Blood Urea Nitrogen 14 mg/dL (8-26) Creatinine 0.9 mg/dL (0.7-1.3) Estimated GFR (Cockcroft-Gault) 90.4 BUN/Creatinine Ratio 16 (6-20) Glucose Level 179 mg/dL (70-99) H Calcium Level 9.0 mg/dL (8.5-10.1) Total Bilirubin 0.2 mg/dL (0.2-1.0) Aspartate Amino Transferase (AST) 22 U/L (15-37) Alanine Aminotransferase (ALT) 39 U/L (16-63) Alkaline Phosphatase 90 U/L (46-116) Troponin I Quantitative 0.061 ng/mL (0.000-0.055) Total Protein 7.3 g/dL (6.4-8.2) Albumin 3.4 g/dL (3.4-5.0) Albumin/Globulin Ratio 0.9 (1.0-1.7) L Laboratory Tests 06/17/20 05:43 Laboratory Tests 06/17/20 05:43 ECHOCARDIOGRAM ECHOCARDIOGRAM <Conclusion> The left ventricular systolic function is severely impaired. The ejection fraction is estimated at 15%. Trace mitral regurgitation. Trace tricuspid regurgitation with an estimated PAP of 21 mmHg. There is no evidence of significant pericardial effusion. DATE: 11/15/191455 HEART CATH HEART CATH INTERVENTION The left main coronary artery was engaged with 6 Peruvian XB 3.5 guide catheter. T he stenosis in the proximal to midsegment of the left anterior descending artery was crossed with a 0.014 inch [employer] guidewire. This was predilated with a 3.5 x 15 mm trek balloon. Follow-up angiography showed 'no-flow' phenomenon from distal embolization of the plaque material. Patient became hypotensive and had a brief episode of into atrial fibrillation that spontaneously converted. 20 mL of 2% lidocaine was infiltrated into the previously prepped right groin, access obtained in the right common femoral artery and 8 Peruvian sheath was inserted. A Sensation plus 50 cc intra-aortic b alloon pump was advanced under fluoroscopy guidance, positioned optimally and turned on at 1:1 setting with improvement in hemodynamics. Subsequently treated the LAD lesion with a 3.5 x 23 mm MultiLink vision stent that overlapped with the previously placed stent in the midsegment. Multiple injections of intracoronary nypride were given as well. Follow-up angiography showed resolution of the lesion, significant improvement to JIMMIE-3 flow in LAD. The very distal/apical segment continue to show no flow/occlusion which would be treated medically with heparin infusion. We also decided to leave the IABP for 24 hours. Patient tolerated the procedure well otherwise. Hemostasis in the right wrist was achieved using TR band. JIMMIE Flow JIMMIE Flow (Pre-Intervention): JIMMIE-2 JIMMIE Flow (Post-Intervention): JIMMIE-3 Conclusion 1. 90% stenosis involving left anterior descending artery. Previously placed stents in LAD and RCA/PDA/PLB were patent. 2. Successful insertion of intra-aortic balloon pump for hemodynamic support Recommendations 1. Monitor patient closely in ICU 2. IABP removal possibly tomorrow 3. Aspirin 325 mg daily 4. Plavix 75 mg daily 5. Cardiovascular risk factor modification DATE: 11/15/19 1422 ASSESSMENT/PLAN ASSESSMENT/PLAN 1. NSTEMI: CP same as prior IN 2. CAD: prior multiple stents, see above 3. ICM: prior EF at 15% Compensated 4. HTN: controlled 5. HLP 6. Tobaccoism 7. Noncompliance: due to financial constraints Recommendations 1. [facility] today, risks and benefits discussed, agreeable to proceed. 2. ASA, Heparin drip infusing. Will restart GDMT post [facility]. 3. Discussed compliance and smoking cessation. 4. TTE, lipids. JENNIE COY MD 06/17/20 1241: CARDIAC CONSULT ASSESSMENT/PLAN ASSESSMENT/PLAN Patient seen and examined. Agree with TRAVELING REPRESENTATIVE's assessment and plan. Clinical picture consistent with non-STEMI. Plan for cardiac catheterization and possible angioplasty. Chronic systolic heart failure clinically well compensated. Possible LifeVest prior to discharge and repeat 2D echo in 3 months to evaluate the need for ICD implantation. Importance of compliance with medications and smoking cessation reemphasized. Thank you for your consultation. FRANK DEL VALLE APRN Jun 17, 2020 08:33 JENNIE COY MD Jun 17, 2020 12:41
[2020-06-17 09:14] LABS: CHOLESTEROL/HDL RATIO 5.3
--- NOTE | 2020-06-17 10:02 | EKG ---
[facility] [address] [place] [address] Test Date: 2020-06-17 Test Time: 08:44:43 Pat Name: SAMSON HOPKINS Department: Room: 258 1 Gender: M Chalk Cutter: : 1970 Requested By: FRANK DEL VALLE Order Number: [id number] Reading MD: Jesús Wesley MD Measurements Intervals [place] Rate: 73 P: 34 MI: 148 QRS: -19 QRSD: 76 T: 157 QT: 424 QTc: 471 Interpretive Statements SINUS RHYTHM CONSIDER LEFT VENTRICULAR HYPERTROPHY QRS(T) CONTOUR ABNORMALITY CONSISTENT WITH ANTEROSEPTAL INFARCT AGE UNDETERMINED CONSISTENT WITH INFERIOR INFARCT PROBABLY OLD T ABNORMALITY IN ANTERIOR LEADS LATERAL LEADS ABNORMAL ECG Electronically Signed On 06-19-2020 13:44:16 CDT by Jesús Wesley MD
[2020-06-17] MEDS ORDERED: LIDOCAINE 1% PF 2 ML VIAL. ONE (11:16)
[2020-06-17] MEDS ORDERED: IOHEXOL 300 MG/ML 100ML VIAL. ONE ×2 (11:17→11:20)
[2020-06-17] MEDS ORDERED: fentaNYL PF VIAL 100 MCG/2 ML VIAL ONE (11:25)
[2020-06-17] MEDS ORDERED: MIDAZOLAM HCL/PF 5 MG/5 ML VIAL. ONE (11:25)
[2020-06-17] MEDS ORDERED: VERAPAMIL 5 MG/2 ML VIAL. ONE (11:36)
[2020-06-17] MEDS ORDERED: HEPARIN for IV BOLUS 10,000 UNIT/10 ML VIAL. ONE (11:36)
[2020-06-17] MEDS ORDERED: NITROGLYCERIN 200 MCG/2 ML SYRINGE FOR CATH/VASC LAB. ONE ×2 (11:37→12:17)
[2020-06-17] MEDS ORDERED: VERAPAMIL 5 MG/2 ML VIAL. IART ONE (11:45)
[2020-06-17] MEDS ORDERED: fentaNYL PF VIAL 100 MCG/2 ML VIAL IV ONE (11:45)
[2020-06-17] MEDS ORDERED: MIDAZOLAM HCL/PF 5 MG/5 ML VIAL. IV ONE (11:45)
[2020-06-17] MEDS ORDERED: HEPARIN for IV BOLUS 10,000 UNIT/10 ML VIAL. IART ONE (11:45)
[2020-06-17] MEDS ORDERED: LIDOCAINE 1% PF 2 ML VIAL. INJ ONE (11:45)
[2020-06-17] MEDS ORDERED: NITROGLYCERIN 200 MCG/2 ML SYRINGE FOR CATH/VASC LAB. IART ONE (11:45)
[2020-06-17] MEDS ORDERED: IOHEXOL 300 MG/ML 100ML VIAL. IART ONE (11:45)
[2020-06-17] MEDS ORDERED: BIVALIRUDIN 250 MG VIAL. IV ONE ×2 (12:04→12:15)
[2020-06-17] MEDS ORDERED: TICAGRELOR 90 MG TABLET. ONE (12:28)
[2020-06-17] MEDS ORDERED: TICAGRELOR 90 MG TABLET. PO ONE (12:30)
--- NOTE | 2020-06-17 12:42 | PDOC ---
MODERATE SEDATION ASSESSMENT RISKS/ALTERNATIVES Risks/Alternatives Risks and alternatives of this type of sedation and procedure discussed with: RISK/ALTERNATIVES: Patient H & P ON CHART H & P H & P on chart and reviewed for co-morbid conditions and appropriate labs. H&P ON CHART: Yes STATUS PREG STATUS ASSESSED: N/A MEDS/ALLERGIES REVIEWED Meds/Allergies Reviewed Medications and Allergies including time and route of recently administered narcotics and sedatives. MEDS/ALLERGIES REVIEWED: Yes ASA RATING ASA RATING: III AIRWAY ASSESSMENT Airway Assessment Airway patency, oral function limitations, presence of caps, crowns, dentures, partials, and ability to extend neck assessed. AIRWAY ASSESSMENT: Yes MALLAMPATI SCORE MALLAMPATI SCORE: II PRE-SEDATION ASSESSMENT PRE-SEDATION ASSESSMENT: Yes JENNIE COY MD Jun 17, 2020 12:42
[2020-06-17] MEDS ORDERED: FUROSEMIDE 20 MG/2 ML VIAL. IVP ONE (12:45)
[2020-06-17] MEDS ORDERED: NITROGLYCERIN SUBLINGUAL 0.4 MG BOTTLE OF 25. SL PRN (12:45)
[2020-06-17] MEDS ORDERED: ACETAMINOPHEN 325 MG TABLET. PO PRN (12:45)
[2020-06-17] MEDS ORDERED: 0.9 % SODIUM CHLORIDE 10 ML DISP.SYRIN. IV PRN (12:45)
--- NOTE | 2020-06-17 12:58 | CARD ---
MR#: [id number] Date of Study: 06/17/2020 Ordering Physician: FRANK DEL VALLE, Referring Physician: FRANK DEL VALLE, Tech: ADAN MORA RTR APPROVED REPORT Technologist: ADAN MORA RTR Nurse: Toshia Varghese RN Procedure(s) performed: 1. Left heart catheterization, selective coronary angiography and left ventr iculography via right transradial approach 2. Successful PCI/drug-eluting stent placement to the left anterior descending artery MODERATE SEDATION TIME: 51 MINUTES FLUORO TIME: 11.6 MIN DOSE: 101 GYCM2 CONTRAST: 197CC OMNI 300 HISTORY : previous CHF. INDICATION The indication(s) include : non-STEMI . [facility] Clinical Frailty Scale [facility] Clinical Frailty Scale: Managing Well Heart Failure Heart Failure: Yes If Yes, Newly Diagnosed: No If Yes, HF Type: Systolic If Yes, NYHA Class: Class II PROCEDURE NARRATIVE After explaining the risks, benefits and alternative options, informed consent was obtained from catherine ent. Patient was brought to the cardiac Electric Well Logging Operator and right wrist was prepped and draped in the usual fashion after confirming a positive modified Humberto's test. Arterial access was obtained in the righ t radial artery and a 6 Albanian sheath was inserted. 6 Albanian John and 6 Albanian JL 3.5 catheters we re used to perform selective angiography of the right and left coronary arteries. 6 Albanian pigtail c atheter was used to perform left ventriculography. The following findings were noted. FINDINGS 1. Hemodynamics: Elevated left ventricular end-diastolic pressure of 33 mmHg consistent with acute o n chronic systolic heart failure. No pullback gradient across the aortic valve. 2. Left ventriculography: Severe left ventricular systolic dysfunction with ejection fraction estima dileep at 15-20%. No significant mitral regurgitation seen. 3. Coronary angiography: a. The left main coronary artery arose from the left sinus of Valsalva, gave rise to the left anteri or descending and left circumflex arteries and did not show any significant stenosis. b. The left anterior descending artery showed 90% in-stent restenosis involving the proximal segment and 20% in-stent restenosis involving the midsegment. c. The left circumflex artery did not show any significant stenosis in the main artery but the first obtuse marginal branch which is a small to medium caliber vessel showed 80% proximal segment stenosi s. d. The right coronary artery was a large and dominant vessel arising from the right sinus of Valsalv a that showed widely patent previously placed stents in the mid and distal segments and also the prox imal segments of posterior descending and posterolateral branches. INTERVENTION The left main coronary artery was engaged with a 6 Albanian XB 3.5 guide catheter. The in-stent resten osis in the proximal segment was crossed with a 0.014 inch Toonimo pro-water guidewire. The proximal a nd mid segment lesions within dilated with a 3.5 x 15 mm Venus TrendMD emerge balloon. The proxi mal in-stent restenosis was then treated successfully with a 3.5 x 15 mm resolute Dhaval drug-eluting s tent. Follow-up angiography showed resolution of the lesion with JIMMIE-3 distal flow. Patient tolera dileep the procedure well. There were no immediate complications. JIMMIE Flow JIMMIE Flow (Pre-Intervention): JIMMIE-2 JIMMIE Flow (Post-Intervention): JIMMIE-3 Conclusion 1. 90% in-stent restenosis involving the proximal segment of left anterior descending artery. The p reviously placed stents in the right coronary artery, PDA and PLB were widely patent. 2. Successful PCI/drug-eluting stent placement to the left anti-descending artery. 3. Severe left ventricular systolic dysfunction with ejection fraction estimated at 15 to 20%. 4. Elevated left ventricular end-diastolic pressure consistent with acute on chronic systolic heart failure Recommendations 1. Aspirin 81 mg daily 2. Ticagrelor 90 mg twice daily 3. Optimization of medical therapy for ischemic cardiomyopathy and repeat 2D echo in 3 months to bree luate the need for AICD implantation. Consider LifeVest upon discharge. 4. Cardiovascular risk factor modification including smoking cessation and cardiac rehabilitation re kym. Signed by : Uday Zurita, Electronically Approved : 06/17/2020 12:57:50
[2020-06-17] MEDS ORDERED: IV 1/2 NORMAL SALINE 1,000 ML IV SCH (13:00)
[2020-06-17] MEDS: TICAGRELOR 90 MG TABLET. PO SCH (13:24)
--- NOTE | 2020-06-17 13:50 | HP ---
ADMIT DATE: 06/17/2020 CHIEF COMPLAINT: Chest pain. HISTORY OF PRESENT ILLNESS: The patient is a pleasant 49-year-old male with known coronary artery disease. He has 8 previous stents. He presented to the ER with chest pain. Says like his previous heart pain. I discussed the case with ER physician. The patient has now been taken to the cardiac labels molder where he is being examined. PAST MEDICAL HISTORY: CAD with 8 stents, hypertension, tobacco abuse. ALLERGIES: None. FAMILY HISTORY: Coronary artery disease. SOCIAL HISTORY: He smokes. No drink or drugs. MEDICATIONS: Reviewed, please refer to the MRAD. REVIEW OF SYSTEMS: GENERAL: No history of weight change, weakness or fevers. SKIN: No bruising, hair changes or rashes. EYES: No blurred, double or loss of vision. NOSE AND THROAT: No history of nosebleeds, hoarseness or sore throat. HEART: He complains of chest pain. LUNGS: Denies cough, hemoptysis, wheezing or shortness of breath. GASTROINTESTINAL: Denies changes in appetite, nausea, vomiting, diarrhea or constipation. GENITOURINARY: No history of frequency, urgency, hesitancy or nocturia. NEUROLOGIC: Denies history of numbness, tingling, tremor or weakness. PSYCHIATRIC: No history of panic, anxiety or depression. ENDOCRINE: No history of heat or cold intolerance, polyuria or polydipsia. EXTREMITIES: Denies muscle weakness, joint pain, pain on walking or stiffness. PHYSICAL EXAMINATION: Most of the exam was deferred to preserve the sterile field. ASSESSMENT AND PLAN: Chest pain with known coronary artery disease. The patient has been admitted. We consulted Cardiology. He is now being taken to the labels molder emergently. Await our cardiac catheterization results. For now, serial enzymes, serial EKGs, cardiac monitoring, home meds, deep venous thrombosis prophylaxis. Full code. AMADA KIMBALL DO DR: WALI/kathleen JOB#: [id number] / [id number]
--- NOTE | 2020-06-17 15:20 | NUR ---
Patient reports feeling of difficulty of breathing. Shaneka SPENCER notified and received order to discontinue saline infusion.
[2020-06-17] MEDS: CARVEDILOL 6.25 MG TABLET. PO SCH (17:29)
[2020-06-17] MEDS: ATORVASTATIN CALCIUM 20 MG TABLET PO SCH (20:42)
[2020-06-18] VITALS (7 sets, daily range): BP systolic 94–155; BP diastolic 61–97
[2020-06-18] MEDS ORDERED: ASPIRIN ENTERIC COATED 81 MG TABLET.DR. PO SCH (08:00)
[2020-06-18] MEDS: TICAGRELOR 90 MG TABLET. PO SCH ×2 (08:30→20:18)
[2020-06-18] MEDS: CARVEDILOL 6.25 MG TABLET. PO SCH ×2 (08:35→18:01)
[2020-06-18] MEDS ORDERED: LISINOPRIL 5 MG TABLET. PO SCH (09:00)
[2020-06-18 09:16] LABS: CALCIUM 8.5 mg/dL (8.5-10.1); CREATININE 1.1 mg/dL (0.7-1.3); GFR 71.8; MAGNESIUM 1.9 mg/dL (1.8-2.4); POTASSIUM 3.9 mmol/L (3.5-5.1)
[2020-06-18] MEDS ORDERED: TICA90TA PO (11:15)
[2020-06-18] MEDS ORDERED: METF500T16 PO (11:15)
[2020-06-18] MEDS ORDERED: FURO40TA4 PO (11:15)
[2020-06-18] MEDS ORDERED: LISINOPRIL 5 MG TABLET. PO ONE (11:15)
--- NOTE | 2020-06-18 11:21 | NUR ---
SS following up with discharge planning. Pt is currently on room air. Order for Life Vest received. SS phoned and faxed order and clinical for Life Vest to [facility], ; fax [phone]. Discharge order on the chart for home with self care. SS will continue to follow for discharge planning.
[2020-06-18] MEDS ORDERED: POTASSIUM CHLORIDE 20 MEQ TABLET.ER. PO ONE (11:30)
[2020-06-18] MEDS ORDERED: FUROSEMIDE 40 MG TABLET. PO ONE (11:30)
--- NOTE | 2020-06-18 12:18 | PDOC ---
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 06/18/20 1218: CARDIO Progress Notes Date and Time Date of Service 06/18/2020 Time of Evaluation 1030 Subjective Subjective: No Chest Pain, No shortness of breath, No Palpitations Vitals Vitals Vital Signs Date Time Temp Pulse Resp B/P (MAP) Pulse Ox O2 Delivery O2 Flow Rate FiO2 06/18/20 11:00 98.3 79 20 94/61 (72) 99 Room Air 98.3 06/17/20 12:41 2.0 Weight Weight [ ] Input and Output Intake and Output Intake and Output 06/18/20 06:59 Intake Total 1500 ml Balance 1500 ml Intake Oral 1500 ml # Voids 5 Laboratory Labs Laboratory Tests Test 06/17/20 13:36 06/18/20 08:05 Troponin I Quantitative 0.247 ng/mL (0.000-0.055) Sodium Level 136 mmol/L (136-145) Potassium Level 3.9 mmol/L (3.5-5.1) Chloride Level 101 mmol/L (98-107) Carbon Dioxide Level 25 mmol/L (21-32) Anion Gap 10 (6-14) Blood Urea Nitrogen 13 mg/dL (8-26) Creatinine 1.1 mg/dL (0.7-1.3) Estimated GFR (Cockcroft-Gault) 71.8 Glucose Level 133 mg/dL (70-99) Calcium Level 8.5 mg/dL (8.5-10.1) Magnesium Level 1.9 mg/dL (1.8-2.4) Thyroid Stimulating Hormone (TSH) 1.632 uIU/mL (0.358-3.74) Physical Exam HEENT: Neck Supple W Full Motion Chest: Symmetric LUNGS: Clear to Auscultation Heart: S1S2, RRR (SR no rhythm ectopies) Abdomen: Soft N/T Extremities: No Edema, No Calf Tenderness Neurology: alert, oriented, follow commands Other Exams right wrist arteriotomy site intact, no erythema, swelling, neurovascular status to right hand intact. Assessment Assessment 1. NSTEMI: Noted with ISR to LAD otherwise prior stents to RCA/PDA/PLB are patent. S/P PCI/DEBBIE to LAD 2. CAD: see above 3. ICM: prior EF at 15-20% per LV gram 4. Acute on chronic diastolic/systolic CHF: compensated 5. HTN: controlled 6. HLP: not on goal 7. Tobaccoism 8. Noncompliance: due to financial constraints stopped meds 2 months ago 9. DM2: new finding A1C 7 defer to PCP Recommendations 1. ASA/brilinta. Continue lipitor, coreg and lisinopril. Will add aldactone and titrate up meds per BP trend. Low dose lasix. 2. Will consider for entresto as outpt pending BP tolerance. Continue optimi zation per GDMT 3. Discussed compliance now that he has an established health insurance and smoking cessation. 4. Lifevest prior to DC, will reeval in 3 months for AICD consideration 5. Anticipate DC this afternoon. Follow up as scheduled Jul 10 at 9:45 AM 6. Encouraged cardiac rehab Justicifation of Admission Dx: Justifications for Admission: Justification of Admission Dx: Yes Angina: Unstable Variant JENNIE COY MD 06/18/20 1351: CARDIO Progress Notes Assessment Assessment Patient seen and examined. Agree with PIGMENT PUMPER's assessment and plan. s/p PCI/DEBBIE to ISR LAD yesterday. The previously placed stents in RCA were patent. Acute on chronic systolic heart failure better compensated. Plan for LifeVest upon discharge and repeat 2D echo in 3 months to evaluate the need for AICD implantation. Importance of compliance with medications reemphasized. Follow-up with our office in July as previously scheduled. FRANK DEL VALLE APRN Jun 18, 2020 12:18 JENNIE COY MD Jun 18, 2020 13:51
--- NOTE | 2020-06-18 16:05 | CARD ---
MR#: [id number] Date of Study: 06/17/2020 Ordering Physician: FRANK DEL VALLE, Referring Physician: FRANK DEL VALLE, Tech: Akua Castillo APPROVED REPORT EXAM: Two-dimensional and M-mode echocardiogram with Doppler and color Doppler. Other Information Quality : AverageHR: 67bpm INDICATION Cardiac Disease: CAD Cardiomyopathy Chest Pain 2D DIMENSIONS RVDd3.3 (2.9-3.5cm)Left Atrium(2D)2.9 (1.6-4.0cm) IVSd1.0 (0.7-1.1cm)Aortic Root(2D)3.6 (2.0-3.7cm) LVDd5.3 (3.9-5.9cm)LVOT Diameter2.3 (1.8-2.4cm) PWd1.0 (0.7-1.1cm)LVDs3.6 (2.5-4.0cm) FS (%) 31.7 %SV79.5 ml Aortic Valve AoV Peak Scott.131.6cm/sAoV VTI24.3cm AO Peak GR.6.9mmHgLVOT VTI 15.33cm AO Mean GR.4mmHg Mitral Valve MV E Rkfnkfvo87.3cm/sMV E Peak Gr.3mmHg MV DECEL [id number] A Usfjodot80.1cm/s MV E Mean Gr.1mmHgE/A Ratio0.6 LEFT VENTRICLE The left ventricle is normal size. There is normal left ventricular wall thickness. The systolic func tion is moderate to severely impaired. The Ejection Fraction is estimated at 30%. There is global hyp okinesis of the left ventricle. Transmitral Doppler flow pattern is Grade I-abnormal relaxation patte rn. RIGHT VENTRICLE The right ventricle is normal size. The right ventricle is borderline hypertrophied. The right ventri cular systolic function is normal. ATRIA The left atrium size is normal. The right atrium size is normal. The interatrial septum is intact wit h no evidence for an atrial septal defect or patent foramen ovale as noted on 2-D or Doppler imaging. AORTIC VALVE The aortic valve is thickened but opens well. Doppler and Color Flow revealed no significant aortic r egurgitation. There is no significant aortic valvular stenosis. Calculated aortic valve area is 2.58 cm2 with maximum pressure gradient of 7 mmHg and mean pressure gradient of 4 mmHg. MITRAL VALVE The mitral valve is normal in structure and function. There is no evidence of mitral valve prolapse. There is no mitral valve stenosis. Doppler and Color Flow revealed no mitral valve regurgitation note d. TRICUSPID VALVE The tricuspid valve is normal in structure and function. Doppler and Color Flow revealed no tricuspid valve regurgitation noted. There is no tricuspid valve stenosis. PULMONIC VALVE The pulmonic valve is not well visualized. Doppler and Color Flow revealed no pulmonic valvular regur gitation. GREAT VESSELS The aortic root is normal in size. PERICARDIAL EFFUSION There is no evidence of significant pericardial effusion. Critical Notification Critical Value: No <Conclusion> The left ventricle is normal size. The systolic function is moderate to severely impaired. The Ejection Fraction is estimated at 30%. There is global hypokinesis of the left ventricle. Doppler and Color Flow revealed no significant aortic regurgitation. There is no significant aortic valvular stenosis. Doppler and Color Flow revealed no mitral valve regurgitation noted. Doppler and Color Flow revealed no tricuspid valve regurgitation noted. Signed by : Brien Schulz MD Electronically Approved : 06/18/2020 16:04:54
[2020-06-18] MEDS ORDERED: SPIR25TA PO (16:07)
[2020-06-18] MEDS: ATORVASTATIN CALCIUM 20 MG TABLET PO SCH (20:18)
--- NOTE | 2020-06-18 21:36 | PDOC3 ---
Discharge Summary Visit Information Date of Admission: Jun 17, 2020 Date of Discharge: Jun 18, 2020 Admitting Diagnosis Comment: Chest pain Final Diagnosis 1. NSTEMI: Noted with ISR to LAD otherwise prior stents to RCA/PDA/PLB are patent. S/P PCI/DEBBIE to LAD 2. CAD: see above 3. ICM: prior EF at 15-20% per LV gram 4. Acute on chronic diastolic/systolic CHF: compensated 5. HTN: controlled 6. HLP: not on goal 7. Tobaccoism 8. Noncompliance: due to financial constraints stopped meds 2 months ago 9. Hyperglycemia, most likely new onset diabetes Brief Hospital Course Allergies Allergies Coded Allergies Type Severity Reaction Last Updated Verified No Known Drug Allergies 02/18/17 No Vital Signs Vital Signs Date Time Temp Pulse Resp B/P (MAP) Pulse Ox O2 Delivery O2 Flow Rate FiO2 06/18/20 20:00 Room Air 06/18/20 18:01 79 154/97 06/18/20 15:00 98.1 20 97 98.1 06/17/20 12:41 2.0 Lab Results Laboratory Tests Test 06/17/20 05:43 06/17/20 08:45 06/17/20 13:36 06/18/20 08:05 White Blood Count 7.8 x10^3/uL (4.0-11.0) Red Blood Count 4.93 x10^6/uL (4.30-5.70) Hemoglobin 15.5 g/dL (13.0-17.5) Hematocrit 45.0 % (39.0-53.0) Mean Corpuscular Volume 91 fL (79-100) Mean Corpuscular Hemoglobin 31 pg (25-35) Mean Corpuscular Hemoglobin Concent 34 g/dL (31-37) Red Cell Distribution Width 13.4 % (11.5-14.5) Platelet Count 173 x10^3/uL (140-400) Neutrophils (%) (Auto) 58 % (31-73) Lymphocytes (%) (Auto) 27 % (24-48) Monocytes (%) (Auto) 9 % (0-9) Eosinophils (%) (Auto) 6 % (0-3) Basophils (%) (Auto) 0 % (0-3) Neutrophils # (Auto) 4.5 x10^3/uL (1.8-7.7) Lymphocytes # (Auto) 2.1 x10^3/uL (1.0-4.8) Monocytes # (Auto) 0.7 x10^3/uL (0.0-1.1) Eosinophils # (Auto) 0.4 x10^3/uL (0.0-0.7) Basophils # (Auto) 0.0 x10^3/uL (0.0-0.2) Prothrombin Time 12.2 SEC (11.7-14.0) Prothromb Time International Ratio 0.9 (0.8-1.1) Sodium Level 138 mmol/L (136-145) 136 mmol/L (136-145) Potassium Level 3.7 mmol/L (3.5-5.1) 3.9 mmol/L (3.5-5.1) Chloride Level 101 mmol/L (98-107) 101 mmol/L (98-107) Carbon Dioxide Level 26 mmol/L (21-32) 25 mmol/L (21-32) Anion Gap 11 (6-14) 10 (6-14) Blood Urea Nitrogen 14 mg/dL (8-26) 13 mg/dL (8-26) Creatinine 0.9 mg/dL (0.7-1.3) 1.1 mg/dL (0.7-1.3) Estimated GFR (Cockcroft-Gault) 90.4 71.8 BUN/Creatinine Ratio 16 (6-20) Glucose Level 179 mg/dL (70-99) 133 mg/dL (70-99) Hemoglobin A1c 7.0 % (4.8-5.6) Calcium Level 9.0 mg/dL (8.5-10.1) 8.5 mg/dL (8.5-10.1) Total Bilirubin 0.2 mg/dL (0.2-1.0) Aspartate Amino Transf (AST/SGOT) 22 U/L (15-37) Alanine Aminotransferase (ALT/SGPT) 39 U/L (16-63) Alkaline Phosphatase 90 U/L (46-116) Troponin I Quantitative 0.061 ng/mL (0.000-0.055) 0.120 ng/mL (0.000-0.055) 0.247 ng/mL (0.000-0.055) Total Protein 7.3 g/dL (6.4-8.2) Albumin 3.4 g/dL (3.4-5.0) Albumin/Globulin Ratio 0.9 (1.0-1.7) Triglycerides Level 207 mg/dL (0-150) Cholesterol Level 185 mg/dL (0-200) LDL Cholesterol, Calculated 109 mg/dL (0-100) VLDL Cholesterol, Calculated 41 mg/dL (0-40) Non-HDL Cholesterol Calculated 150 mg/dL (0-129) HDL Cholesterol 35 mg/dL (40-60) Cholesterol/HDL Ratio 5.3 Magnesium Level 1.9 mg/dL (1.8-2.4) Thyroid Stimulating Hormone (TSH) 1.632 uIU/mL (0.358-3.74) Laboratory Tests Test 06/18/20 08:05 Sodium Level 136 mmol/L (136-145) Potassium Level 3.9 mmol/L (3.5-5.1) Chloride Level 101 mmol/L (98-107) Carbon Dioxide Level 25 mmol/L (21-32) Anion Gap 10 (6-14) Blood Urea Nitrogen 13 mg/dL (8-26) Creatinine 1.1 mg/dL (0.7-1.3) Estimated GFR (Cockcroft-Gault) 71.8 Glucose Level 133 mg/dL (70-99) Calcium Level 8.5 mg/dL (8.5-10.1) Magnesium Level 1.9 mg/dL (1.8-2.4) Thyroid Stimulating Hormone (TSH) 1.632 uIU/mL (0.358-3.74) Brief Hospital Course Mr. Cardenas is a 49 old male who presented with chest discomfort typical of unstable angina he was evaluated promptly by our technical assistance consultant who took the patient to the cardiac slab miller operator. /he was found to have flow limiting lesions at the LAD, stent was placed and his symtpoms greatly improved, he was deemed appropriate for discharge, his EF was quite low and he will be fitted with a life vest and close follow up with ECHO in 3 months to evaluate for AICD placement at that time this is his 9th stent, counseling was done regarding lifestyle modification avoidance of tobacco alcohol or drugs that can affecdt his cardiovascular health, he acknowledged understanding of all the instructions. In good spirits to be discharged home, signs and symptoms of concern were addressed prior to discharge. REcommendations from cardiology as follows: Recommendations 1. ASA/brilinta. Continue lipitor, coreg and lisinopril. Will add aldactone and titrate up meds per BP trend. Low dose lasix. 2. Will consider for entresto as outpt pending BP tolerance. Continue optimization per GDMT 3. Discussed compliance now that he has an established health insurance and smoking cessation. 4. Lifevest prior to DC, will reeval in 3 months for AICD consideration 5. Anticipate DC this afternoon. Follow up as scheduled Jul 10 at 9:45 AM 6. Encouraged cardiac rehab Physical exam: Lungs clear to auscultation with good inspiratory effort CVS s1s2 rr no murmurs Discharge Information Condition at Discharge: Improved Follow Up: Weeks Disposition/Orders: D/C to Home Scheduled Aspirin (Aspirin Ec) 325 Mg Tablet., 1 TAB PO DAILY for cardiac, #100 Ref 3 Prescribed by: INGRID CAAL on 04/03/19 1259 Atorvastatin Calcium (Atorvastatin Calcium) 40 Mg Tablet, 1 TAB PO QHS for cholesterol, #90 Ref 3 Prescribed by: INGRID CAAL on 04/03/19 1259 Bupropion Hcl (Wellbutrin Sr) 150 Mg Tablet.er, 1 TAB PO BID, #60 Ref 5 (Reported) Entered as Reported by: DANILO CALVIN on 06/09/18 0956 Carvedilol (Carvedilol ) 3.125 Mg Tablet, 1 TAB PO BID for htn, #60 Ref 3 Prescribed by: INGRID CAAL on 04/03/19 1259 Furosemide (Furosemide) 40 Mg Tablet, 40 MG PO DAILY for chf for 30 Days, #30 Prescribed by: ZENA MATSON MD on 06/18/20 1115 Lisinopril (Lisinopril) 10 Mg Tablet, 1 TAB PO DAILY, #30 Ref 5 (Reported) Entered as Reported by: LIBERTAD KELLER on 02/18/17 1043 Metformin Hcl (Metformin Hcl) 500 Mg Tablet, 500 MG PO BIDWMEALS for ANTI- DIABETIC for 30 Days, #60 Ref 0 Prescribed by: ZENA MATSON MD on 06/18/20 1115 Pantoprazole Sodium (Pantoprazole Sodium ) 40 Mg Tablet.dr, 1 TAB PO DAILY, #30 Ref 3 (Reported) Entered as Reported by: LIBERTAD KELLER on 02/18/17 1045 Spironolactone (Aldactone) 25 Mg Tablet, 1 TAB PO DAILY for ICM, #3 Ref 2 Prescribed by: FRANK DEL VALLE on 06/18/20 1607 Ticagrelor (Brilinta) 90 Mg Tablet, 90 MG PO BID for antiplatelet for 30 Days, #60 Prescribed by: ZENA MATSON MD on 06/18/20 1115 Scheduled PRN Albuterol Sulfate (Proair Hfa Inhaler) 8.5 Gm Hfa.aer.ad, 1 PUFF INH PRN Q6HRS PRN for SHORTNESS OF BREATH, Ref 0 (Reported) Entered as Reported by: DANILO CALVIN on 06/09/18 0956 Cyclobenzaprine Hcl (Cyclobenzaprine Hcl) 10 Mg Tablet, 10 MG PO PRN Q8HRS PRN for MUSCLE SPASMS for 30 Days, #30 Prescribed by: ZENA MATSON MD on 11/18/19 1003 Docusate Sodium (Colace) 100 Mg Capsule, 100 MG PO BID PRN for CONSTIPATION, #30 Prescribed by: INGRID CAAL on 04/03/19 1300 Hydrocodone Bit/Acetaminophen (Hydrocodone-Apap 7.5-325 ) 1 Tab Tablet, 1 TAB PO PRN Q6HRS PRN for PAIN, #35 Prescribed by: INGRID CAAL on 04/03/19 1259 Nitroglycerin (Nitrostat) 0.4 Mg Tab.subl, 0.4 MG SL PRN Q5MIN PRN for CHEST PAIN for 30 Days, #25 Prescribed by: ZENA MATSON MD on 11/18/19 1003 Discontinued Medications Clopidogrel Bisulfate (Clopidogrel) 75 Mg Tablet, 75 MG PO DAILYWBKFT for CAD for 30 Days, #30 Prescribed by: ZENA MATSON MD on 11/18/19 1003 Spironolactone (Spironolactone) 25 Mg Tablet, 1 TAB PO BID, #90 Ref 1 (Reported) Entered as Reported by: LIBERTAD KELLER on 02/18/17 1046 Justicifation of Admission Dx: Justifications for Admission: Justification of Admission Dx: Yes Angina: Unstable Variant ZENA MATSON MD Jun 18, 2020 21:35
[2020-06-19] MEDS ORDERED: POTASSIUM CHLORIDE 20 MEQ TABLET.ER. PO SCH (08:00)
[2020-06-19] MEDS ORDERED: FUROSEMIDE 40 MG TABLET. PO SCH (09:00)
== END 2020-06-18 21:20 | disposition home or self-care (01) | DRG 246 ==
LOC: ER 05:32 → 2 SOUTH 07:35
PROVIDERS: ADMIT Internal Medicine; ATTEND Internal Medicine
PROC: 027034Z Dilation of Coronary Artery, One Artery with Drug-eluting Intraluminal Device, Percutaneous Approach (ICD-10-PCS; principal; 2020-06-17)
PROC: 4A023N7 Measurement of Cardiac Sampling and Pressure, Left Heart, Percutaneous Approach (ICD-10-PCS; 2020-06-17)
PROC: B2111ZZ Fluoroscopy of Multiple Coronary Arteries using Low Osmolar Contrast (ICD-10-PCS; 2020-06-17)
PROC: B2151ZZ Fluoroscopy of Left Heart using Low Osmolar Contrast (ICD-10-PCS; 2020-06-17)
DX: T82.855A Stenosis of coronary artery stent, initial encounter (principal); I21.4 Non-ST elevation (NSTEMI) myocardial infarction; I50.43 Acute on chronic combined systolic (congestive) and diastolic (congestive) heart failure; J98.11 Atelectasis; I25.110 Atherosclerotic heart disease of native coronary artery with unstable angina pectoris; Y83.8 Other surgical procedures as the cause of abnormal reaction of the patient, or of later complication, without mention of misadventure at the time of the procedure; E11.65 Type 2 diabetes mellitus with hyperglycemia; E78.5 Hyperlipidemia, unspecified; K21.9 Gastro-esophageal reflux disease without esophagitis; M19.90 Unspecified osteoarthritis, unspecified site; F17.210 Nicotine dependence, cigarettes, uncomplicated; I25.5 Ischemic cardiomyopathy; I11.0 Hypertensive heart disease with heart failure; I25.2 Old myocardial infarction; Y92.89 Other specified places as the place of occurrence of the external cause; Z82.49 Family history of ischemic heart disease and other diseases of the circulatory system; Z91.14 Patient's other noncompliance with medication regimen; Z91.19 Patient's noncompliance with other medical treatment and regimen; Z95.5 Presence of coronary angioplasty implant and graft; Z95.810 Presence of automatic (implantable) cardiac defibrillator
CPT/HCPCS: 36415; 71045; 80048; 80053; 80061; 83036; 83735; 84443; 84484; 85025; 85610; 92928; 93005; 93306; 93458; 96365; 96366; 99152; 99153; C1769; C1874; C1887; C1892; J0583; J1644; J1940; J2250; J3010; J3490; Q9967; 99291-25; C1725; G0378

== ENCOUNTER → 2020-11-17 | Outpatient (CLI) | payer OTHER ==
[2020-06-18 18:01] VITALS: BP 154/97
[~2020-11-17] MED LIST changes: +FURO40TA4 PO; +LISI10TA16 PO; -LISI10TA2 PO; +METF500T16 PO; +SPIR25TA PO; +TICA90TA PO
--- NOTE | 2020-11-17 14:56 | CARD ---
MR#: [id number] Date of Study: 11/17/2020 Ordering Physician: JENNIE ZURITA, Referring Physician: JENNIE ZURITA, Tech: Akua Castillo APPROVED REPORT EXAM: Two-dimensional and M-mode echocardiogram with Doppler and color Doppler. Other Information Quality : AverageHR: 94bpm INDICATION Cardiomyopathy RISK FACTORS Hypertension Hyperlipidemia Diabetes Smoking 2D DIMENSIONS RVDd3.4 (2.9-3.5cm)Left Atrium(2D)4.1 (1.6-4.0cm) IVSd1.1 (0.7-1.1cm)Aortic Root(2D)3.1 (2.0-3.7cm) LVDd5.2 (3.9-5.9cm)LVOT Diameter2.0 (1.8-2.4cm) PWd1.1 (0.7-1.1cm)LVDs4.2 (2.5-4.0cm) FS (%) 19.6 %SV52.8 ml LVEF(%)40.0 (>50%) Aortic Valve AoV Peak Scott.144.0cm/sAoV VTI25.7cm AO Peak GR.8.3mmHgLVOT Peak Scott.110.5cm/s LVOT VTI 21.86cmAO Mean GR.5mmHg ALY (VMAX)1.10eg9LUQ (VTI)2.78cm2 Mitral Valve MV E Hgebxplb45.1cm/sMV DECEL [id number] MV A Trhavkoa65.0cm/sMV E Mean Gr.2mmHg MV [id number] Ratio0.7 MVA (PHT)3.54cm2 TDI E/Lateral E'7.7E/Medial E'7.6 Pulmonary Valve PV Peak Lqorrnpo286.8cm/sPV Peak Grad.5mmHg Pulmonary Vein S1 Yyffaqsp95.3cm/sD2 Ihempsvo20.1cm/s PVa [id number] LEFT VENTRICLE The left ventricle is normal size. There is mild concentric left ventricular hypertrophy. The left ve ntricular systolic function is mildly diminished. The Ejection Fraction is 40-45%. Transmitral Dopple r flow pattern is Grade I-abnormal relaxation pattern. RIGHT VENTRICLE The right ventricle is normal size. There is normal right ventricular wall thickness. The right ventr icular systolic function is normal. ATRIA The left atrium size is normal. The right atrium size is normal. The interatrial septum is intact wit h no evidence for an atrial septal defect or patent foramen ovale as noted on 2-D or Doppler imaging. AORTIC VALVE The aortic valve is normal in structure and function. Doppler and Color Flow revealed trace aortic re gurgitation. There is no significant aortic valvular stenosis. Calculated aortic valve area is 2.62 c m2 with maximum pressure gradient of 8 mmHg and mean pressure gradient of 5 mmHg. MITRAL VALVE The mitral valve is normal in structure and function. There is no evidence of mitral valve prolapse. There is no mitral valve stenosis. Doppler and Color-flow revealed trace mitral regurgitation. TRICUSPID VALVE The tricuspid valve is normal in structure and function. Doppler and Color Flow revealed no tricuspid valve regurgitation noted. There is no tricuspid valve stenosis. PULMONIC VALVE The pulmonic valve is not well visualized. Doppler and Color Flow revealed trace pulmonic valvular re gurgitation. GREAT VESSELS The aortic root is normal in size. The IVC was not well visualized. PERICARDIAL EFFUSION There is no evidence of significant pericardial effusion. Critical Notification Critical Value: No <Conclusion> The left ventricular systolic function is mildly diminished. The Ejection Fraction is 40-45%. Transmitral Doppler flow pattern is Grade I-abnormal relaxation pattern. Trace mitral regurgitation. There is no evidence of significant pericardial effusion. Signed by : Jennie Zurita, Electronically Approved : 11/17/2020 14:55:44
== END ==
LOC: ECHO 09:00
PROVIDERS: ATTEND Internal Medicine Cardiovascular Disease
DX: I25.5 Ischemic cardiomyopathy (principal); I51.7 Cardiomegaly
CPT/HCPCS: 93306

== ENCOUNTER 2022-03-22 08:27 | Inpatient (IN) | payer OTHER ==
[~2022-03-22] VITALS: Ht 175.3 cm; Wt 75.2 kg
[~2022-03-22 08:27] MED LIST changes: +CYCL10TA19 PO; -CYCL10TA2 PO
[2022-03-22 09:24] LABS: BASO % 1 % (0-3); EOS # 0.2 x10^3/uL (0.0-0.7); EOS % 3 % (0-3); HEMATOCRIT 44.3 % (39.0-53.0); LYMPH # 1.7 x10^3/uL (1.0-4.8); LYMPH % 23 % (24-48); MEAN CORPUSCULAR HEMOGLOBIN 31 pg (25-35); MEAN CORPUSCULAR HGB CONC 34 g/dL (31-37); MEAN CORPUSCULAR VOLUME 91 fL (79-100); MONO # 0.6 x10^3/uL (0.0-1.1); MONO % 8 % (0-9); NEUT # 4.8 x10^3/uL (1.8-7.7); NEUT % 66 % (31-73); PLATELET COUNT 190 x10^3/uL (140-400); RED BLOOD COUNT 4.88 x10^6/uL (4.30-5.70); WHITE BLOOD COUNT 7.3 x10^3/uL (4.0-11.0)
--- NOTE | 2022-03-22 09:35 | RAD ---
XR CHEST 2V History: Shortness of breath Comparison: 06/17/2020 Technique: PA and lateral chest radiographs. Findings: The lungs are adequately and symmetrically inflated. No airspace consolidation, pleural effusion or p neumothorax. There is prominence of pulmonary vasculature and an enlarged cardiac silhouette. A coron nava stent is present. The osseous structures and soft tissues are unremarkable. Impression: 1. Cardiomegaly with pulmonary vascular congestion. Electronically signed by: Steven Washington MD (03/22/2022 9:33 AM) [id number]
[2022-03-22 09:55] LABS: CALCIUM 8.4 mg/dL (8.5-10.1); GFR 79.4
[2022-03-22] MEDS ORDERED: FUROSEMIDE 40 MG/4 ML VIAL. IVP ONE ×2 (10:00→16:15)
--- NOTE | 2022-03-22 10:16 | PDOC1 ---
History and Physical Date of Admission Date of Admission DATE: 03/22/22 TIME: 10:14 Source Source: Patient History of Present Illness History of Present Illness Patient is a 51-year-old male with past medical history diastolic CHF, HTN, HLD, who presents to the ED with complaints of worsening leg swelling over the past 2 weeks. He reports chronic dyspnea over the past year, and worsening orthopnea and dyspnea on exertion over the past 2 weeks. Labs on admission were largely unremarkable, CBG 177, proBNP 3066, troponin 16. Chest x-ray shows cardiomegaly with pulmonary vascular congestion. He received IV Lasix in the ED. He has been admitted for further medical management. Past Medical History Cardiovascular: CHF, HTN, CA, Hyperlipidemia, Other CENTRAL NERVOUS SYSTEM: Other GI: GERD Heme/Onc: No pertinent hx Hepatobiliary: No pertinent hx Musculoskeletal: Osteoarthritis Past Surgical History Past Surgical History: Arthroscopy, Other Family History Family History: Coronary Artery Disease Social History Smoke: <1 pack per day ALCOHOL: none Drugs: None Current Medications Current Medications Current Medications Furosemide (Lasix) 40 mg 1X ONCE IVP Last administered on 03/22/22at 10:11; Start 03/22/22 at 10:00; Stop 03/22/22 at 10:01; Status DC Active Scripts Active Aldactone (Spironolactone) 25 Mg Tablet 1 Tab PO DAILY Metformin Hcl 500 Mg Tablet 500 Mg PO BIDWMEALS 30 Days Furosemide 40 Mg Tablet 40 Mg PO DAILY 30 Days Brilinta (Ticagrelor) 90 Mg Tablet 90 Mg PO BID 30 Days Nitrostat (Nitroglycerin) 0.4 Mg Tab.subl 0.4 Mg SL PRN Q5MIN PRN 30 Days Cyclobenzaprine Hcl 10 Mg Tablet 10 Mg PO PRN Q8HRS PRN 30 Days Colace (Docusate Sodium) 100 Mg Capsule 100 Mg PO BID PRN Hydrocodone-Apap 7.5-325 (Hydrocodone Bit/Acetaminophen) 1 Tab Tablet 1 Tab PO PRN Q6HRS PRN Aspirin Ec (Aspirin) 325 Mg Tablet.dr 1 Tab PO DAILY Atorvastatin Calcium 40 Mg Tablet 1 Tab PO QHS Carvedilol (Carvedilol) 3.125 Mg Tablet 1 Tab PO BID Reported Proair Hfa Inhaler (Albuterol Sulfate) 8.5 Gm Hfa.aer.ad 1 Puff INH PRN Q6HRS PRN Wellbutrin Sr (Bupropion Hcl) 150 Mg Tablet.er 1 Tab PO BID Pantoprazole Sodium (Pantoprazole Sodium) 40 Mg Tablet.dr 1 Tab PO DAILY Lisinopril 10 Mg Tablet 1 Tab PO DAILY Allergies Allergies: Coded Allergies: cat dander (Verified Allergy, Intermediate, eye swelling, 03/22/22) ROS Review of System GENERAL: No history of weight change, weakness or fevers. SKIN: No bruising, hair changes or rashes. EYES: No blurred, double or loss of vision. NOSE AND THROAT: No history of nosebleeds, hoarseness or sore throat. HEART: Denies chest pain, denies palpitations. LUNGS: Shortness of breath, orthopnea, shortness of breath with exertion. Denies hemoptysis. GASTROINTESTINAL: Denies nausea, vomiting, abdominal pain. GENITOURINARY: Denies dysuria, frequency, urgency, hematuria. NEUROLOGIC: Denies history of numbness, tingling, tremor or weakness. PSYCHIATRIC: Denies anxiety, denies depression. ENDOCRINE: No history of heat or cold intolerance, polyuria or polydipsia. EXTREMITIES: Bilateral leg swelling. Denies muscle weakness, joint pain, pain on walking or stiffness. Physical Exam Physical Exam General: Alert, Oriented X3, Cooperative, no acute distress HEENT: Atraumatic, EOMI Lungs: Bibasilar rales Heart: RRR, no rubs Cardiovascular: S1, S2 Abdomen: Normal bowel sounds, Soft, No tenderness Extremities: +1 bilateral leg edema Skin: No breakdown, No significant lesion Neuro: Normal speech, Sensation intact Psych/Mental Status: Mental status NL, Mood NL Vitals Vitals Vital Signs Date Time Temp Pulse Resp B/P (MAP) Pulse Ox O2 Delivery O2 Flow Rate FiO2 03/22/22 10:13 99 20 146/101 (116) 99 Room Air 03/22/22 08:42 98.3 98.3 Labs Labs Laboratory Tests Test 03/22/22 08:50 White Blood Count 7.3 x10^3/uL (4.0-11.0) Red Blood Count 4.88 x10^6/uL (4.30-5.70) Hemoglobin 15.0 g/dL (13.0-17.5) Hematocrit 44.3 % (39.0-53.0) Mean Corpuscular Volume 91 fL (79-100) Mean Corpuscular Hemoglobin 31 pg (25-35) Mean Corpuscular Hemoglobin Concent 34 g/dL (31-37) Red Cell Distribution Width 14.0 % (11.5-14.5) Platelet Count 190 x10^3/uL (140-400) Neutrophils (%) (Auto) 66 % (31-73) Lymphocytes (%) (Auto) 23 % (24-48) Monocytes (%) (Auto) 8 % (0-9) Eosinophils (%) (Auto) 3 % (0-3) Basophils (%) (Auto) 1 % (0-3) Neutrophils # (Auto) 4.8 x10^3/uL (1.8-7.7) Lymphocytes # (Auto) 1.7 x10^3/uL (1.0-4.8) Monocytes # (Auto) 0.6 x10^3/uL (0.0-1.1) Eosinophils # (Auto) 0.2 x10^3/uL (0.0-0.7) Basophils # (Auto) 0.0 x10^3/uL (0.0-0.2) Sodium Level 139 mmol/L (136-145) Potassium Level 4.0 mmol/L (3.5-5.1) Chloride Level 105 mmol/L (98-107) Carbon Dioxide Level 23 mmol/L (21-32) Anion Gap 11 (6-14) Blood Urea Nitrogen 9 mg/dL (8-26) Creatinine 1.0 mg/dL (0.7-1.3) Estimated GFR (Cockcroft-Gault) 79.4 Glucose Level 177 mg/dL (70-99) Calcium Level 8.4 mg/dL (8.5-10.1) Troponin I High Sensitivity 16 ng/L (4-75) VN-Hup-A-Type Natriuretic Peptide 3066 pg/mL (0-124) Laboratory Tests Test 03/22/22 08:50 White Blood Count 7.3 x10^3/uL (4.0-11.0) Red Blood Count 4.88 x10^6/uL (4.30-5.70) Hemoglobin 15.0 g/dL (13.0-17.5) Hematocrit 44.3 % (39.0-53.0) Mean Corpuscular Volume 91 fL (79-100) Mean Corpuscular Hemoglobin 31 pg (25-35) Mean Corpuscular Hemoglobin Concent 34 g/dL (31-37) Red Cell Distribution Width 14.0 % (11.5-14.5) Platelet Count 190 x10^3/uL (140-400) Neutrophils (%) (Auto) 66 % (31-73) Lymphocytes (%) (Auto) 23 % (24-48) Monocytes (%) (Auto) 8 % (0-9) Eosinophils (%) (Auto) 3 % (0-3) Basophils (%) (Auto) 1 % (0-3) Neutrophils # (Auto) 4.8 x10^3/uL (1.8-7.7) Lymphocytes # (Auto) 1.7 x10^3/uL (1.0-4.8) Monocytes # (Auto) 0.6 x10^3/uL (0.0-1.1) Eosinophils # (Auto) 0.2 x10^3/uL (0.0-0.7) Basophils # (Auto) 0.0 x10^3/uL (0.0-0.2) Sodium Level 139 mmol/L (136-145) Potassium Level 4.0 mmol/L (3.5-5.1) Chloride Level 105 mmol/L (98-107) Carbon Dioxide Level 23 mmol/L (21-32) Anion Gap 11 (6-14) Blood Urea Nitrogen 9 mg/dL (8-26) Creatinine 1.0 mg/dL (0.7-1.3) Estimated GFR (Cockcroft-Gault) 79.4 Glucose Level 177 mg/dL (70-99) Calcium Level 8.4 mg/dL (8.5-10.1) Troponin I High Sensitivity 16 ng/L (4-75) FQ-Xlg-G-Type Natriuretic Peptide 3066 pg/mL (0-124) Images Images PATIENT: SAMSON HOPKINSCCOUNT: [id number] : 1970 LOCATION: ER AGE: 51 SEX: M EXAM STATUS: REG ER ORD. PHYSICIAN: MARY KAY DELGADO MD REASON: SOB PROCEDURE: CHEST PA & LATERAL XR CHEST 2V History: Shortness of breath Comparison: 06/17/2020 Technique: PA and lateral chest radiographs. Findings: The lungs are adequately and symmetrically inflated. No airspace consolidation, pleural effusion or pneumothorax. There is prominence of pulmonary vasculature and an enlarged cardiac silhouette. A coronary stent is present. The osseous structures and soft tissues are unremarkable. Impression: 1. Cardiomegaly with pulmonary vascular congestion. VTE Prophylaxis Ordered VTE Prophylaxis Devices: No VTE Pharmacological Prophylaxi: Yes Assessment/Plan Assessment/Plan Diastolic CHF HTN HLD Hyperglycemia Plan: Continue diuresis with IV Lasix Echocardiogram from 11/17/2020 showed mildly diminished LV function with EF 40- 45%. Grade 1 diastolic dysfunction. Will order echocardiogram and place consultation to cardiology Monitor I's & O's and fluid restrict to <2 L daily. 2 g sodium restriction. Hemoglobin A1c pending Resume home medications FEN - Cardiac diet PPX - Heparin FULL CODE Dispo - inpatient for above Justifications for Admission Other Justification BEATRIZ FLYNN MD March 22, 2022 10:16
--- NOTE | 2022-03-22 10:18 | PHYS DOC ---
Past Medical History Past Medical History: CAD, Hypertension Past Surgical History: Other Additional Past Surgical Histo: CARDIAC STENTS x9 Smoking Status: Current Every Day Smoker Alcohol Use: None Drug Use: None General Adult EDM: Chief Complaint: SHORTNESS OF BREATH HPI: HPI: Patient is a 51 year old with a history of coronary artery disease status-post placement of 10 stents, ischemic cardiomyopathy (last EF 40-45%), and diabetes who presents to the emergency department today with complaints of shortness of breath and lower extremity edema. Patient states that for the past week he has had worsening swelling in his legs. He states it has now come up his legs and he can feel it in his abdomen. He feels that he is bloated all the time. He also complains of shortness of breath. He states that shortness of breath is worse at night when lying flat. He states he usually sleeps on 2 pillows but had to increase it to 3 recently. He also endorses some PND. He denies having any chest pain. Patient is supposed to take Lasix but has not taken it in several months secondary to being unable to afford it. He denies any fevers or chills. He denies any nausea or vomiting. Review of Systems: Review of Systems: Constitutional: Denies fever or chills. [] Eyes: Denies change in visual acuity. [] HENT: Denies nasal congestion or sore throat. [] Respiratory: Positive for shortness of breath, orthopnea and PND Cardiovascular: Denies chest pain GI: Denies abdominal pain, nausea, vomiting, bloody stools or diarrhea. [] : Denies dysuria. [] Musculoskeletal: Denies back pain or joint pain. [] Integument: Denies rash. [] Neurologic: Denies headache, focal weakness or sensory changes. [] Endocrine: Denies polyuria or polydipsia. [] Lymphatic: Denies swollen glands. [] Psychiatric: Denies depression or anxiety. [] Heart Score: C/O Chest Pain: No Family History: Family History: Noncontributory Current Medications: Current Medications Medications (Trade) Dose Ordered Sig/Leila Start Time Stop Time Status Last Admin Dose Admin Furosemide (Lasix) 40 mg 1X ONCE 03/22/22 10:00 03/22/22 10:01 PA Allergies: Allergies: Allergies Coded Allergies Type Severity Reaction Last Updated Verified cat dander Allergy Intermediate eye swelling 03/22/22 Yes Physical Exam: PE: Constitutional: Well developed, well nourished, no acute distress, non-toxic appearance. [] HENT: Normocephalic, atraumatic, bilateral external ears normal, oropharynx moist, no oral exudates, nose normal. [] Eyes: PERRLA, EOMI, conjunctiva normal, no discharge. [] Neck: Normal range of motion, no tenderness, supple, no stridor. [] Cardiovascular:Heart rate regular rhythm, no murmur [] Lungs & Thorax: Rales at the bases bilaterally. Abdomen: Bowel sounds normal, soft, no tenderness, no masses, no pulsatile masses. [] Skin: Warm, dry, no erythema, no rash. [] Back: No tenderness, no CVA tenderness. [] Extremities: No tenderness, no cyanosis, no clubbing, ROM intact. 1+ bilateral lower extremity pitting edema. Neurologic: Alert and oriented X 3, normal motor function, normal sensory function, no focal deficits noted. [] Psychologic: Affect normal, judgement normal, mood normal. [] Current Patient Data: Labs: Laboratory Tests Test 03/22/22 08:50 White Blood Count 7.3 x10^3/uL (4.0-11.0) Red Blood Count 4.88 x10^6/uL (4.30-5.70) Hemoglobin 15.0 g/dL (13.0-17.5) Hematocrit 44.3 % (39.0-53.0) Mean Corpuscular Volume 91 fL (79-100) Mean Corpuscular Hemoglobin 31 pg (25-35) Mean Corpuscular Hemoglobin Concent 34 g/dL (31-37) Red Cell Distribution Width 14.0 % (11.5-14.5) Platelet Count 190 x10^3/uL (140-400) Neutrophils (%) (Auto) 66 % (31-73) Lymphocytes (%) (Auto) 23 % (24-48) L Monocytes (%) (Auto) 8 % (0-9) Eosinophils (%) (Auto) 3 % (0-3) Basophils (%) (Auto) 1 % (0-3) Neutrophils # (Auto) 4.8 x10^3/uL (1.8-7.7) Lymphocytes # (Auto) 1.7 x10^3/uL (1.0-4.8) Monocytes # (Auto) 0.6 x10^3/uL (0.0-1.1) Eosinophils # (Auto) 0.2 x10^3/uL (0.0-0.7) Basophils # (Auto) 0.0 x10^3/uL (0.0-0.2) Sodium Level 139 mmol/L (136-145) Potassium Level 4.0 mmol/L (3.5-5.1) Chloride Level 105 mmol/L (98-107) Carbon Dioxide Level 23 mmol/L (21-32) Anion Gap 11 (6-14) Blood Urea Nitrogen 9 mg/dL (8-26) Creatinine 1.0 mg/dL (0.7-1.3) Estimated GFR (Cockcroft-Gault) 79.4 Glucose Level 177 mg/dL (70-99) H Calcium Level 8.4 mg/dL (8.5-10.1) L Troponin I High Sensitivity 16 ng/L (4-75) HN-Naz-F-Type Natriuretic Peptide 3066 pg/mL (0-124) H Laboratory Tests 03/22/22 08:50 Laboratory Tests 03/22/22 08:50 Vital Signs: Vital Signs Date Time Temp Pulse Resp B/P (MAP) Pulse Ox O2 Delivery O2 Flow Rate FiO2 03/22/22 08:42 98.3 102 24 142/101 (115) 99 Room Air 98.3 EKG: EKG: EKG shows a sinus tachycardia with a rate of 103. Intervals are normal. There is a right axis deviation. There are inferior Q waves and inverted T waves. These are unchanged from previous EKG. No evidence of any acute ischemia or inf arction. Radiology/Procedures: Radiology/Procedures: XR CHEST 2V History: Shortness of breath Comparison: 06/17/2020 Technique: PA and lateral chest radiographs. Findings: The lungs are adequately and symmetrically inflated. No airspace consolidation, pleural effusion or pneumothorax. There is prominence of pulmonary vasculature and an enlarged cardiac silhouette. A coronary stent is present. The osseous structures and soft tissues are unremarkable. Impression: 1. Cardiomegaly with pulmonary vascular congestion. Electronically signed by: Steven Washington MD (03/22/2022 9:33 AM) [id number] Impression: Acute CHF exacerbation Ischemic cardiomyopathy Coronary artery disease Diabetes Bilateral lower extremity edema Course & Med Decision Making: Course & Med Decision Making Patient remained hemodynamically stable while in the emergency department. He was evaluated the bedside with a physical exam. Patient's history and physical consistent with volume overload secondary to congestive heart failure. Chest x- ray does show evidence of pulmonary vascular congestion. BNP is 3066. Given this, I have given the patient 40 mg of IV Lasix. I have discussed the patient with the hospitalist service and we will admit to the hospitalist for diuresis and further evaluation and management. Dragon Disclaimer: Dragon Disclaimer: This electronic medical record was generated, in whole or in part, using a voice recognition dictation system. Departure Departure Impression: Primary Impression: Acute exacerbation of CHF (congestive heart failure) Additional Impressions: Ischemic cardiomyopathy Coronary artery disease Diabetes Bilateral lower extremity edema Disposition: ADMITTED INPATIENT Referrals: Elizabeth PINEDA MD (PCP) MARY KAY DELGADO MD March 22, 2022 10:18
[2022-03-22 11:28] VITALS: BP 136/99
[2022-03-22] MEDS ORDERED: ACET500T68 PO (12:16)
[2022-03-22 14:31] VITALS: BP 123/82
--- NOTE | 2022-03-22 16:15 | PDOC2 ---
JOSELUIS BRYANT [employer] 03/22/22 1614: CARDIAC CONSULT DATE OF CONSULT Date of Consult DATE: 03/22/22 TIME: 16:06 REASON FOR CONSULT Reason for Consult: CHF REFERRING PHYSICIAN Referring Physician: Dr. Knox SOURCE Source: Chart review, Patient HISTORY OF PRESENT ILLNESS HISTORY OF PRESENT ILLNESS This is a 51 yo male who presented secondary to shortness of breath and lower extremity edema bilaterally. Reports these symptoms have been progressive over the last couple of weeks. Has a history of ICM and CAD s/p PCI/multiple stents. Unfortunately, has not been compliant with medications for > 1 year. Reports he has been unable to afford, although [employer] $4 list has been discussed and he continue to smoke and drink. He denies any chest pain, palpitations, dizziness, or shortness of breath. PAST MEDICAL HISTORY Cardiovascular: CAD, CHF, HTN, Hyperlipidemia GI: GERD Psych: Anxiety PAST SURGICAL HISTORY Past Surgical History: Other (tracheostomy, PCI/stents ) FAMILY HISTORY Family History: Heart Disease SOCIAL HISTORY Smoke: <1 pack per day ALCOHOL: social Drugs: Other (THC ) Lives: with Family CURRENT MEDICATIONS CURRENT MEDICATIONS Current Medications Medications (Trade) Dose Ordered Sig/Leila Route PRN Reason Start Time Stop Time Status Last Admin Dose Admin Furosemide (Lasix) 40 mg 1X ONCE IVP 03/22/22 10:00 03/22/22 10:01 DC 03/22/22 10:11 ALLERGIES ALLERGIES: Coded Allergies: cat dander (Verified Allergy, Intermediate, eye swelling, 03/22/22) ROS Review of System 14 point ROS conducted with pertinent positives noted above in HPI PHYSICAL EXAM General: Alert, Oriented X3, Cooperative, No acute distress HEENT: Atraumatic Lungs: Other (diminished bases) Heart: Regular rate Abdomen: Soft, No tenderness Extremities: Other (1+ bilateral LE edema ) Skin: No breakdown, No significant lesion Neuro: Normal speech, Sensation intact Psych/Mental Status: Mental status NL, Mood NL MUSCULOSKELETAL: Osteoarthritic changes both hands VITALS/I&O VITALS/I&O: Vital Signs Date Time Temp Pulse Resp B/P (MAP) Pulse Ox O2 Delivery O2 Flow Rate FiO2 03/22/22 14:31 98.6 96 19 123/82 (96) 99 Room Air 98.6 LABS Lab: Laboratory Tests Test 03/22/22 08:50 White Blood Count 7.3 x10^3/uL (4.0-11.0) Red Blood Count 4.88 x10^6/uL (4.30-5.70) Hemoglobin 15.0 g/dL (13.0-17.5) Hematocrit 44.3 % (39.0-53.0) Mean Corpuscular Volume 91 fL (79-100) Mean Corpuscular Hemoglobin 31 pg (25-35) Mean Corpuscular Hemoglobin Concent 34 g/dL (31-37) Red Cell Distribution Width 14.0 % (11.5-14.5) Platelet Count 190 x10^3/uL (140-400) Neutrophils (%) (Auto) 66 % (31-73) Lymphocytes (%) (Auto) 23 % (24-48) L Monocytes (%) (Auto) 8 % (0-9) Eosinophils (%) (Auto) 3 % (0-3) Basophils (%) (Auto) 1 % (0-3) Neutrophils # (Auto) 4.8 x10^3/uL (1.8-7.7) Lymphocytes # (Auto) 1.7 x10^3/uL (1.0-4.8) Monocytes # (Auto) 0.6 x10^3/uL (0.0-1.1) Eosinophils # (Auto) 0.2 x10^3/uL (0.0-0.7) Basophils # (Auto) 0.0 x10^3/uL (0.0-0.2) Sodium Level 139 mmol/L (136-145) Potassium Level 4.0 mmol/L (3.5-5.1) Chloride Level 105 mmol/L (98-107) Carbon Dioxide Level 23 mmol/L (21-32) Anion Gap 11 (6-14) Blood Urea Nitrogen 9 mg/dL (8-26) Creatinine 1.0 mg/dL (0.7-1.3) Estimated GFR (Cockcroft-Gault) 79.4 Glucose Level 177 mg/dL (70-99) H Calcium Level 8.4 mg/dL (8.5-10.1) L Troponin I High Sensitivity 16 ng/L (4-75) RP-Wkz-T-Type Natriuretic Peptide 3066 pg/mL (0-124) H Laboratory Tests 03/22/22 08:50 Laboratory Tests 03/22/22 08:50 ECHOCARDIOGRAM ECHOCARDIOGRAM <Conclusion> The left ventricular systolic function is mildly diminished. The Ejection Fraction is 40-45%. Transmitral Doppler flow pattern is Grade I-abnormal relaxation pattern. Trace mitral regurgitation. There is no evidence of significant pericardial effusion. DATE: 11/17/20 [id number] 0 ASSESSMENT/PLAN ASSESSMENT/PLAN 1. Acute respiratory failure secondary to a/c CHF 2. Acute on chronic systolic CHF; s/p IV Lasix 3. Ischemic cardiomyopathy; Echo 11/20 with LVEF 40-45% 4. CAD s/p PCI/DEBBIE to the RCA and LAD in the past and more recent PCI/DEBBIE to in-stent restenosis involving proximal LAD 5. Hypertension; controlled 6. Hyperlipidemia 7. Tobaccosim; discussed/encourage cessation 8. Noncompliance; has been not taking med for > 1 yr Recommendations Diuresis with monitoring of labs 2Gm Na diet, 2000cc FR. Daily weights, monitoring I and O Resume secondary prevention, HF optimization Discussed importance of compliance with medical therapy Lipids Echocardiogram to assess LV systolic function Supportive care JENNIE COY MD 03/22/22 0899: CARDIAC CONSULT ASSESSMENT/PLAN ASSESSMENT/PLAN Patient seen and examined. Agree with THIRD OFFICER's assessment and plan. Acute on chr systolic HF better compensated with diuresis CAD clinically stable Importance of compliance with meds and fluid/salt intake reemphasized Thank you for your consultation JOSELUIS BRYANT APRN March 22, 2022 16:14 JENNIE COY MD March 22, 2022 18:59
[2022-03-22] MEDS: CARVEDILOL 3.125 MG TABLET. PO SCH (16:51)
[2022-03-22 19:35] VITALS: BP 125/85
[2022-03-22] MEDS: ATORVASTATIN CALCIUM 40 MG TABLET. PO SCH (21:17)
[2022-03-22 23:12] VITALS: BP 127/83
[2022-03-23 02:08] LABS: HEMOGLOBIN A1C 7.1 % (4.8-5.6)
[2022-03-23 03:13] VITALS: BP 124/82
[2022-03-23 06:44] LABS: CALCIUM 8.8 mg/dL (8.5-10.1); CREATININE 1.1 mg/dL (0.7-1.3); GFR 71.1; POTASSIUM 3.4 mmol/L (3.5-5.1)
[2022-03-23 06:47] LABS: CHOLESTEROL/HDL RATIO 4.6
[2022-03-23 07:00] VITALS: BP 128/94
[2022-03-23] MEDS ORDERED: ASPIRIN ENTERIC COATED 81 MG TABLET.DR. PO SCH (08:00)
[2022-03-23] MEDS: LOSARTAN POTASSIUM 25 MG TABLET. PO SCH (08:31)
[2022-03-23] MEDS: ASPIRIN ENTERIC COATED 325 MG TABLET.DR. PO SCH (08:31)
[2022-03-23] MEDS: CARVEDILOL 3.125 MG TABLET. PO SCH ×2 (08:32→16:26)
[2022-03-23] MEDS: FUROSEMIDE 40 MG/4 ML VIAL. IVP SCH (08:33)
[2022-03-23] MEDS ORDERED: DEXTROSE 50% 25 GM / 50ML DISP.SYRIN. IV PRN (09:45)
[2022-03-23] MEDS ORDERED: ACETAMINOPHEN 325 MG TABLET. PO PRN (09:45)
[2022-03-23] MEDS ORDERED: ONDANSETRON PF 4 MG/2 ML VIAL. IVP PRN (09:45)
--- NOTE | 2022-03-23 09:45 | PDOC ---
[employer] PROGRESS NOTE Date of Service DOS: DATE: 03/23/22 TIME: 09:40 Chief Complaint Chief Complaint Acute Diastolic CHF HTN HLD DM2 - A1c 7.1, has Hyperglycemia Plan: Continue diuresis with IV Lasix Echocardiogram from 11/17/2020 showed mildly diminished LV function with EF 40- 45%. Grade 1 diastolic dysfunction. Will order echocardiogram and place consultation to cardiology Monitor I's & O's and fluid restrict to <2 L daily. 2 g sodium restriction. Hemoglobin A1c pending Resume home medications FEN - Cardiac diet PPX - Heparin FULL CODE Dispo - inpatient for above History of Present Illness History of Present Illness Mr Higuera is a 51 yo male with past medical history diastolic CHF, HTN, HLD, who presents to the ED with complaints of worsening leg swelling over the past 2 weeks. He reports chronic dyspnea over the past year, and worsening orthopnea and dyspnea on exertion over the past 2 weeks. Labs on admission were largely unremarkable, CBG 177, proBNP 3066, troponin 16. Chest x-ray shows cardiomegaly with pulmonary vascular congestion. He received IV Lasix in the ED. He has been admitted for further medical management. He does continue to smoke and drink. He denies any chest pain, palpitations, dizziness, or shortness of breath. 03/23: 1.90 PE after IV furosemide. Echocardiogram this morning still with significant orthopnea and dyspnea on exertion still and even with dyspnea at r est. HbA1c returned 7.1 discussed diagnosis diabetes he says he thinks he has been told this before. He has difficulty affording medications outpatient. Vitals/I&O Vitals/I&O: Vital Signs Date Time Temp Pulse Resp B/P (MAP) Pulse Ox O2 Delivery O2 Flow Rate FiO2 03/23/22 08:32 82 128/94 03/23/22 07:00 97.8 18 97 Room Air 97.8 I & O 03/22/22 03/22/22 03/23/22 15:00 23:00 07:00 Intake Total 800 ml 180 ml 440 ml Balance 800 ml 180 ml 440 ml Physical Exam General: Alert, Oriented X3, Cooperative, No acute distress Heart: Regular rate Lungs: Clear Abdomen: Soft, No tenderness Extremities: Other (1+ bilateral LE edema ) Skin: No breakdown, No significant lesion Labs Labs: Laboratory Tests Test 03/23/22 04:55 Sodium Level 139 mmol/L (136-145) Potassium Level 3.4 mmol/L (3.5-5.1) Chloride Level 102 mmol/L (98-107) Carbon Dioxide Level 26 mmol/L (21-32) Anion Gap 11 (6-14) Blood Urea Nitrogen 12 mg/dL (8-26) Creatinine 1.1 mg/dL (0.7-1.3) Estimated GFR (Cockcroft-Gault) 71.1 Glucose Level 117 mg/dL (70-99) Calcium Level 8.8 mg/dL (8.5-10.1) Triglycerides Level 102 mg/dL (0-150) Cholesterol Level 148 mg/dL (0-200) LDL Cholesterol, Calculated 96 mg/dL (0-100) VLDL Cholesterol, Calculated 20 mg/dL (0-40) Non-HDL Cholesterol Calculated 116 mg/dL (0-129) HDL Cholesterol 32 mg/dL (40-60) Cholesterol/HDL Ratio 4.6 Thyroid Stimulating Hormone (TSH) 1.708 uIU/mL (0.358-3.74) Assessment and Plan Assessmemt and Plan Problems Medical Problems: (1) Acute exacerbation of CHF (congestive heart failure) Status: Acute (2) Bilateral lower extremity edema Status: Acute (3) Coronary artery disease Status: Acute (4) Diabetes Status: Acute (5) Ischemic cardiomyopathy Status: Acute Comment Review of Relevant I have reviewed the following items mara (where applicable) has been applied. Medications: Current Medications Medications (Trade) Dose Ordered Sig/Leila Route PRN Reason Start Time Stop Time Status Last Admin Dose Admin Furosemide (Lasix) 40 mg 1X ONCE IVP 03/22/22 10:00 03/22/22 10:01 DC 03/22/22 10:11 Furosemide (Lasix) 40 mg 1X ONCE IVP 03/22/22 16:15 03/22/22 16:16 DC 03/22/22 16:20 Furosemide (Lasix) 40 mg DAILY IVP 03/23/22 09:00 03/23/22 08:33 Carvedilol (Coreg) 3.125 mg BIDWMEALS PO 03/22/22 17:00 03/23/22 08:32 Losartan Potassium (Cozaar) 25 mg DAILY PO 03/23/22 09:00 03/23/22 08:31 Atorvastatin Calcium (Lipitor) 40 mg QHS PO 03/22/22 21:00 03/22/22 21:17 Aspirin (Ecotrin) 325 mg DAILY PO 03/23/22 09:00 03/23/22 08:31 Justifications for Admission Other Justification ROSA ELENA HEDRICK MD March 23, 2022 09:45
--- NOTE | 2022-03-23 09:49 | PDOC ---
JOSELUIS BRYANT WATER PUMPER 03/23/22 0949: CARDIO Progress Notes Date and Time Date of Service 03/23/22 Time of Evaluation 0980 Subjective Subjective: No Chest Pain, No shortness of breath, No Palpitations, Other (LE edema better ) Vitals Vitals Vital Signs Date Time Temp Pulse Resp B/P (MAP) Pulse Ox O2 Delivery O2 Flow Rate FiO2 03/23/22 08:32 82 128/94 03/23/22 08:00 Room Air 03/23/22 07:00 97.8 18 97 97.8 Weight Weight [ ] Input and Output Intake and Output Intake and Output 03/23/22 07:00 Intake Total 1420 ml Balance 1420 ml Intake Oral 1420 ml # Voids 2 Laboratory Labs Laboratory Tests Test 03/23/22 04:55 Sodium Level 139 mmol/L (136-145) Potassium Level 3.4 mmol/L (3.5-5.1) Chloride Level 102 mmol/L (98-107) Carbon Dioxide Level 26 mmol/L (21-32) Anion Gap 11 (6-14) Blood Urea Nitrogen 12 mg/dL (8-26) Creatinine 1.1 mg/dL (0.7-1.3) Estimated GFR (Cockcroft-Gault) 71.1 Glucose Level 117 mg/dL (70-99) Calcium Level 8.8 mg/dL (8.5-10.1) Triglycerides Level 102 mg/dL (0-150) Cholesterol Level 148 mg/dL (0-200) LDL Cholesterol, Calculated 96 mg/dL (0-100) VLDL Cholesterol, Calculated 20 mg/dL (0-40) Non-HDL Cholesterol Calculated 116 mg/dL (0-129) HDL Cholesterol 32 mg/dL (40-60) Cholesterol/HDL Ratio 4.6 Thyroid Stimulating Hormone (TSH) 1.708 uIU/mL (0.358-3.74) Physical Exam HEENT: Neck Supple W Full Motion Chest: Symmetric LUNGS: Clear to Auscultation Heart: RRR Abdomen: Soft N/T Extremities: Other (1+ bilateral LE edema ) Neurology: alert, oriented, follow commands Assessment Assessment 1. Acute respiratory failure secondary to a/c CHF. 2. Acute on chronic systolic CHF; improved s/p IV Lasix 3. Ischemic cardiomyopathy; Echo 11/20 with LVEF 40-45% 4. CAD s/p PCI/DEBBIE to the RCA and LAD in the past and more recent PCI/DEBBIE to in-stent restenosis involving proximal LAD 5. Hypertension; controlled 6. Hyperlipidemia 7. Diabetes, II 8. Tobaccoism; reinforced cessation 9. Noncompliance; has been not taking med for > 1 yr Recommendations Ongoing diuresis Daily weights, monitoring I and O Secondary prevention, HF optimization Reinforced importance of compliance with medical therapy Echocardiogram pending Supportive care Justicifation of Admission Dx: Justifications for Admission: Justification of Admission Dx: Yes Angina: Unstable Variant JENNIE COY MD 03/23/22 1843: CARDIO Progress Notes Assessment Assessment Patient seen and examined. Agree with COMMUNITY RESOURCE CONSULTANT's assessment and plan. Acute on chr systolic HF better compensated with diuresis CAD clinically stable 2D echo showed EF 20% Importance of compliance with meds and fluid/salt intake reemphasized JOSELUIS BRYANT APRN March 23, 2022 09:49 JENNIE COY MD March 23, 2022 18:43
[2022-03-23 10:43] VITALS: BP 131/91
[2022-03-23] MEDS ORDERED: MAGNESIUM SULFATE 1GM 100 ML IV ONE (11:00)
[2022-03-23] MEDS: EMPAGLIFLOZIN 10 MG TABLET. PO SCH (11:24)
[2022-03-23] MEDS: INSULIN LISPRO 300 UNITS/3 ML VIAL. SQ SCH ×3 (11:25→19:52)
--- NOTE | 2022-03-23 13:21 | NUR ---
SS following for discharge planning. SS reviewed pt chart and discussed with pt RN. Pt is from home and is currently on room air. Cardiology following. Pt on IV Lasix. SS will continue to follow for discharge planning.
[2022-03-23] MEDS ORDERED: FUROSEMIDE 40 MG/4 ML VIAL. IVP ONE (13:45)
[2022-03-23] MEDS ORDERED: POTASSIUM CHLORIDE 20 MEQ TABLET.ER. PO ONE (13:45)
[2022-03-23 15:00] VITALS: BP 128/69
--- NOTE | 2022-03-23 18:18 | CARD ---
MR#: [id number] Date of Study: 03/23/2022 Ordering Physician: JOSELUIS BRYANT, Referring Physician: JOSELUIS BRYANT, Tech: APPROVED REPORT EXAM: Two-dimensional and M-mode echocardiogram with Doppler and color Doppler. INDICATION Dyspnea Cardiac Disease: CAD Congestive Heart Failure RISK FACTORS Hypertension 2D DIMENSIONS Left Atrium(2D)5.2 (1.6-4.0cm)IVSd1.0 (0.7-1.1cm) Aortic Root(2D)3.4 (2.0-3.7cm)LVDd5.5 (3.9-5.9cm) LVOT Diameter1.9 (1.8-2.4cm)PWd1.0 (0.7-1.1cm) LVDs4.5 (2.5-4.0cm)FS (%) 16.8 % SV50.7 ml Aortic Valve AoV Peak Scott.117.2cm/sAoV VTI19.9cm AO Peak GR.5.5mmHgLVOT Peak Scott.73.2cm/s AO Mean GR.3mmHgAVA (VMAX)1.78cm2 Mitral Valve MV E Mujnwlod97.0cm/s Pulmonary Valve PV Peak Wbqinpwm21.9cm/s Tricuspid Valve TR P. Xclsbxye433cm/sTR Peak Gr.30mmHg LEFT VENTRICLE The Left Ventricle is borderline dilated. There is mild apical hypertrophy. The ejection fraction is severely impaired. LV ejection fraction estimated at 20%. There is severe global hypokinesis of the left ventricle. RIGHT VENTRICLE The right ventricle is normal size. There is normal right ventricular wall thickness. Systolic functi on is borderline reduced. ATRIA The left atrium is mildly dilated. The right atrium is mildly dilated. The interatrial septum is inta ct with no evidence for an atrial septal defect or patent foramen ovale as noted on 2-D or Doppler im aging. AORTIC VALVE The aortic valve is normal in structure and function. Doppler and Color Flow revealed no significant aortic regurgitation. There is no significant aortic valvular stenosis. MITRAL VALVE The mitral valve is normal in structure and function. There is no evidence of mitral valve prolapse. There is no mitral valve stenosis. Doppler and Color-flow revealed trace to mild mitral regurgitation . TRICUSPID VALVE The tricuspid valve is normal in structure and function. Doppler and Color Flow revealed mild tricusp id regurgitation. Estiamted PAP 38 mmHg. There is no tricuspid valve stenosis. PULMONIC VALVE The pulmonary valve is normal in structure and function. Doppler and Color Flow revealed mild pulmoni c valvular regurgitation. GREAT VESSELS The aortic root is normal in size. The ascending aorta is normal in size. The IVC is normal in size a nd collapses <50% with inspiration. PERICARDIAL EFFUSION There is no evidence of significant pericardial effusion. Critical Notification Critical Value: No <Conclusion> The Left Ventricle is borderline dilated. The ejection fraction is severely impaired. LV ejection fraction estimated at 20%. There is severe global hypokinesis of the left ventricle. Doppler and Color Flow revealed no significant aortic regurgitation. There is no significant aortic valvular stenosis. Doppler and Color-flow revealed trace to mild mitral regurgitation. Doppler and Color Flow revealed mild tricuspid regurgitation. Estiamted PAP 38 mmHg. Signed by : Brien Schulz MD Electronically Approved : 03/23/2022 18:18:09
[2022-03-23 19:18] VITALS: BP 112/76
[2022-03-23] MEDS: ATORVASTATIN CALCIUM 40 MG TABLET. PO SCH (19:48)
[2022-03-23 22:59] VITALS: BP 124/83
[2022-03-24 03:03] VITALS: BP 107/76
[2022-03-24 07:00] VITALS: BP 132/89
[2022-03-24] MEDS: INSULIN LISPRO 300 UNITS/3 ML VIAL. SQ SCH ×2 (07:30→11:27)
[2022-03-24] MEDS: LOSARTAN POTASSIUM 25 MG TABLET. PO SCH (08:26)
[2022-03-24] MEDS: ASPIRIN ENTERIC COATED 325 MG TABLET.DR. PO SCH (08:26)
[2022-03-24] MEDS: EMPAGLIFLOZIN 10 MG TABLET. PO SCH (08:26)
[2022-03-24] MEDS: FUROSEMIDE 40 MG/4 ML VIAL. IVP SCH (08:26)
[2022-03-24] MEDS: CARVEDILOL 3.125 MG TABLET. PO SCH (08:27)
[2022-03-24 08:58] LABS: CALCIUM 9.3 mg/dL (8.5-10.1); CREATININE 1.2 mg/dL (0.7-1.3); GFR 64.4; MAGNESIUM 2.1 mg/dL (1.8-2.4); POTASSIUM 4.2 mmol/L (3.5-5.1)
--- NOTE | 2022-03-24 09:11 | PDOC ---
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 [employer]AG[employer] 03/24/22 0910: CARDIO Progress Notes Date and Time Date of Service 03/24/22 Time of Evaluation 1145 Subjective Subjective: No Chest Pain, No shortness of breath, No Palpitations, No Dizziness Vitals Vitals Vital Signs Date Time Temp Pulse Resp B/P (MAP) Pulse Ox O2 Delivery O2 Flow Rate FiO2 03/24/22 08:27 86 132/89 03/24/22 07:33 Room Air 03/24/22 07:00 97.7 17 99 97.7 Weight Weight [ ] Input and Output Intake and Output Intake and Output 03/24/22 07:00 Intake Total 1960 ml Balance 1960 ml Intake Oral 1780 ml Tube Feeding 180 ml # Voids 4 Laboratory Labs Laboratory Tests Test 03/23/22 11:01 03/23/22 16:25 03/23/22 19:51 03/24/22 07:48 Glucose (Fingerstick) 185 mg/dL (70-99) 191 mg/dL (70-99) 149 mg/dL (70-99) 125 mg/dL (70-99) Test 03/24/22 08:25 Sodium Level 135 mmol/L (136-145) Potassium Level 4.2 mmol/L (3.5-5.1) Chloride Level 98 mmol/L (98-107) Carbon Dioxide Level 26 mmol/L (21-32) Anion Gap 11 (6-14) Blood Urea Nitrogen 17 mg/dL (8-26) Creatinine 1.2 mg/dL (0.7-1.3) Estimated GFR (Cockcroft-Gault) 64.4 Glucose Level 176 mg/dL (70-99) Calcium Level 9.3 mg/dL (8.5-10.1) Magnesium Level 2.1 mg/dL (1.8-2.4) Physical Exam HEENT: Neck Supple W Full Motion Chest: Symmetric LUNGS: Clear to Auscultation Heart: RRR Abdomen: Soft N/T Extremities: No Edema Neurology: alert, oriented, follow commands Assessment Assessment 1. Acute respiratory failure secondary to a/c CHF. 2. Acute on chronic systolic CHF; improved s/p IV Lasix. appears compensated 3. Ischemic cardiomyopathy; Echo 11/20 with LVEF 40-45%. Repeat echo showed LVEF of 20% with severe global hypokinesis of the LV. 4. CAD s/p PCI/DEBBIE to the RCA and LAD in the past and more recent PCI/DEBBIE to in-stent restenosis involving proximal LAD 5. Hypertension; controlled 6. Hyperlipidemia 7. Diabetes, II 8. Tobaccoism; reinforced cessation 9. Noncompliance; has been not taking med for > 1 yr Recommendations Secondary prevention HF optimization Lasix therapy- convert to oral Add spironolactone and Jardiance Continue Coreg, losartan. consider converting losartan to Entresto on an outpatient basis. Reinforced importance of compliance with medical therapy Outpatient ischemic evaluation Supportive care Follow up in our office with Dr. Zurita as scheduled. Justicifation of Admission Dx: Justifications for Admission: Justification of Admission Dx: Yes Angina: Unstable Variant JENNIE ZURITA MD 03/24/22 5586: CARDIO Progress Notes Assessment Assessment Patient seen and examined. Agree with POWER NUT RUNNER OPERATOR's assessment and plan. Acute on chr systolic HF better compensated with diuresis CAD clinically stable 2D echo showed EF 20% Agree with adding jardiance and spironolactone Importance of compliance with meds and fluid/salt intake reemphasized Follow up as scheduled JOSELUIS BRYANT APRN March 24, 2022 09:10 JENNIE ZURITA MD March 24, 2022 18:44
[2022-03-24 11:00] VITALS: BP 119/80
[2022-03-24] MEDS ORDERED: FURO40TA4 PO (13:30)
[2022-03-24] MEDS ORDERED: SPIR25TA5 PO (13:30)
[2022-03-24] MEDS ORDERED: LOSA25TA54 PO (13:30)
[2022-03-24] MEDS ORDERED: EMPA10TA3 PO (13:30)
[2022-03-24] MEDS ORDERED: ATOR40TA59 PO (13:30)
[2022-03-24] MEDS ORDERED: CARV3.1210 PO (13:30)
--- NOTE | 2022-03-24 13:36 | PDOC ---
[facility] PROGRESS NOTE Date of Service DOS: DATE: 03/24/22 TIME: 13:34 Chief Complaint Chief Complaint Acute Combined systolic and Diastolic CHF Ischemic cardiomyopathy - EF 20% CAD s/p PCI/multiple stents HTN HLD DM2 - A1c 7.1, has Hyperglycemia Echo: The Left Ventricle is borderline dilated. The ejection fraction is severely impaired. LV ejection fraction estimated at 20%. There is severe global hypokinesis of the left ventricle. Doppler and Color Flow revealed no significant aortic regurgitation. There is no significant aortic valvular stenosis. Doppler and Color-flow revealed trace to mild mitral regurgitation. Doppler and Color Flow revealed mild tricuspid regurgitation. Estiamted PAP 38 mmHg. Plan: FEN - Cardiac diet PPX - Heparin FULL CODE Dispo - inpatient for above History of Present Illness History of Present Illness Mr Higuera is a 51 yo male with past medical history diastolic CHF, HTN, HLD, who presents to the ED with complaints of worsening leg swelling over the past 2 weeks. He reports chronic dyspnea over the past year, and worsening orthopnea and dyspnea on exertion over the past 2 weeks. Labs on admission were largely unremarkable, CBG 177, proBNP 3066, troponin 16. Chest x-ray shows cardiomegaly with pulmonary vascular congestion. He received IV Lasix in the ED. He has been admitted for further medical management. He does continue to smoke and drink. He denies any chest pain, palpitations, dizziness, or shortness of breath. 03/23: 1.90 L UOP after IV furosemide. Echocardiogram this morning still with significant orthopnea and dyspnea on exertion still and even with dyspnea at rest. HbA1c returned 7.1 discussed diagnosis diabetes he says he thinks he has been told this before. He has difficulty affording medications outpatient. 03/24: Still with creatinine elevated urine output after additional IV Lasix. He is feeling significantly better. Echocardiogram shows EF 20% optimized on carvedilol losartan atorvastatin aspirin added spironolactone and Jardiance. We will need outpatient follow-up. Vitals/I&O Vitals/I&O: Vital Signs Date Time Temp Pulse Resp B/P (MAP) Pulse Ox O2 Delivery O2 Flow Rate FiO2 03/24/22 11:00 98.0 75 17 119/80 (93) 96 Room Air 98.0 I & O 03/23/22 03/23/22 03/24/22 15:00 23:00 07:00 Intake Total 600 ml 1160 ml 200 ml Balance 600 ml 1160 ml 200 ml Physical Exam General: Alert, Oriented X3, Cooperative, No acute distress Heart: Regular rate Lungs: Clear Abdomen: Soft, No tenderness Extremities: Other (1+ bilateral LE edema ) Skin: No breakdown, No significant lesion Labs Labs: Laboratory Tests Test 03/23/22 16:25 03/23/22 19:51 03/24/22 07:48 03/24/22 08:25 Glucose (Fingerstick) 191 mg/dL (70-99) 149 mg/dL (70-99) 125 mg/dL (70-99) Sodium Level 135 mmol/L (136-145) Potassium Level 4.2 mmol/L (3.5-5.1) Chloride Level 98 mmol/L (98-107) Carbon Dioxide Level 26 mmol/L (21-32) Anion Gap 11 (6-14) Blood Urea Nitrogen 17 mg/dL (8-26) Creatinine 1.2 mg/dL (0.7-1.3) Estimated GFR (Cockcroft-Gault) 64.4 Glucose Level 176 mg/dL (70-99) Calcium Level 9.3 mg/dL (8.5-10.1) Magnesium Level 2.1 mg/dL (1.8-2.4) Test 03/24/22 11:27 Glucose (Fingerstick) 146 mg/dL (70-99) Assessment and Plan Assessmemt and Plan Problems Medical Problems: (1) Acute exacerbation of CHF (congestive heart failure) Status: Acute (2) Bilateral lower extremity edema Status: Acute (3) Coronary artery disease Status: Acute (4) Diabetes Status: Acute (5) Ischemic cardiomyopathy Status: Acute Comment Review of Relevant I have reviewed the following items mara (where applicable) has been applied. Medications: Current Medications Medications (Trade) Dose Ordered Sig/Leila Route PRN Reason Start Time Stop Time Status Last Admin Dose Admin Furosemide (Lasix) 40 mg 1X ONCE IVP 03/23/22 13:45 03/23/22 13:46 DC 03/23/22 15:09 Potassium Chloride (Klor-Con) 40 meq 1X ONCE PO 03/23/22 13:45 03/23/22 13:46 DC 03/23/22 15:07 Justifications for Admission Other Justification ROSA ELENA HEDRICK MD March 24, 2022 13:36
--- NOTE | 2022-03-24 13:38 | PDOC3 ---
Discharge Summary Visit Information Date of Admission: March 22, 2022 Date of Discharge: March 24, 2022 Admitting Diagnosis: Acute combined CHF, DM2 Final Diagnosis Problems Medical Problems: (1) Acute exacerbation of CHF (congestive heart failure) Status: Acute (2) Bilateral lower extremity edema Status: Acute (3) Coronary artery disease Status: Acute (4) Diabetes Status: Acute (5) Ischemic cardiomyopathy Status: Acute Brief Hospital Course Allergies Allergies Coded Allergies Type Severity Reaction Last Updated Verified cat dander Allergy Intermediate eye swelling 03/22/22 Yes Vital Signs Vital Signs Date Time Temp Pulse Resp B/P (MAP) Pulse Ox O2 Delivery O2 Flow Rate FiO2 03/24/22 11:00 98.0 75 17 119/80 (93) 96 Room Air 98.0 Lab Results Laboratory Tests Test 03/23/22 04:55 03/23/22 11:01 03/23/22 16:25 03/23/22 19:51 Sodium Level 139 mmol/L (136-145) Potassium Level 3.4 mmol/L (3.5-5.1) Chloride Level 102 mmol/L (98-107) Carbon Dioxide Level 26 mmol/L (21-32) Anion Gap 11 (6-14) Blood Urea Nitrogen 12 mg/dL (8-26) Creatinine 1.1 mg/dL (0.7-1.3) Estimated GFR (Cockcroft-Gault) 71.1 Glucose Level 117 mg/dL (70-99) Calcium Level 8.8 mg/dL (8.5-10.1) Magnesium Level 1.8 mg/dL (1.8-2.4) Triglycerides Level 102 mg/dL (0-150) Cholesterol Level 148 mg/dL (0-200) LDL Cholesterol, Calculated 96 mg/dL (0-100) VLDL Cholesterol, Calculated 20 mg/dL (0-40) Non-HDL Cholesterol Calculated 116 mg/dL (0-129) HDL Cholesterol 32 mg/dL (40-60) Cholesterol/HDL Ratio 4.6 Thyroid Stimulating Hormone (TSH) 1.708 uIU/mL (0.358-3.74) Glucose (Fingerstick) 185 mg/dL (70-99) 191 mg/dL (70-99) 149 mg/dL (70-99) Test 03/24/22 07:48 03/24/22 08:25 03/24/22 11:27 Glucose (Fingerstick) 125 mg/dL (70-99) 146 mg/dL (70-99) Sodium Level 135 mmol/L (136-145) Potassium Level 4.2 mmol/L (3.5-5.1) Chloride Level 98 mmol/L (98-107) Carbon Dioxide Level 26 mmol/L (21-32) Anion Gap 11 (6-14) Blood Urea Nitrogen 17 mg/dL (8-26) Creatinine 1.2 mg/dL (0.7-1.3) Estimated GFR (Cockcroft-Gault) 64.4 Glucose Level 176 mg/dL (70-99) Calcium Level 9.3 mg/dL (8.5-10.1) Magnesium Level 2.1 mg/dL (1.8-2.4) Laboratory Tests Test 03/23/22 16:25 03/23/22 19:51 03/24/22 07:48 03/24/22 08:25 Glucose (Fingerstick) 191 mg/dL (70-99) 149 mg/dL (70-99) 125 mg/dL (70-99) Sodium Level 135 mmol/L (136-145) Potassium Level 4.2 mmol/L (3.5-5.1) Chloride Level 98 mmol/L (98-107) Carbon Dioxide Level 26 mmol/L (21-32) Anion Gap 11 (6-14) Blood Urea Nitrogen 17 mg/dL (8-26) Creatinine 1.2 mg/dL (0.7-1.3) Estimated GFR (Cockcroft-Gault) 64.4 Glucose Level 176 mg/dL (70-99) Calcium Level 9.3 mg/dL (8.5-10.1) Magnesium Level 2.1 mg/dL (1.8-2.4) Test 03/24/22 11:27 Glucose (Fingerstick) 146 mg/dL (70-99) Brief Hospital Course Mr Higuera is a 51 yo male with past medical history diastolic CHF, HTN, HLD, who presents to the ED with complaints of worsening leg swelling over the past 2 weeks. He reports chronic dyspnea over the past year, and worsening orthopnea and dyspnea on exertion over the past 2 weeks. Labs on admission were largely unremarkable, CBG 177, proBNP 3066, troponin 16. Chest x-ray shows cardiomegaly with pulmonary vascular congestion. He received IV Lasix in the ED. He has been admitted for further medical management. He does continue to smoke and drink. He denies any chest pain, palpitations, dizziness, or shortness of breath. 03/23: 1.90 L UOP after IV furosemide. Echocardiogram this morning still with significant orthopnea and dyspnea on exertion still and even with dyspnea at rest. HbA1c returned 7.1 discussed diagnosis diabetes he says he thinks he has been told this before. He has difficulty affording medications outpatient. 03/24: Still with creatinine elevated urine output after additional IV Lasix. He is feeling significantly better. Echocardiogram shows EF 20% optimized on carvedilol losartan atorvastatin aspirin added spironolactone and Jardiance. We will need outpatient follow-up. Consults: Cardiology Problem list: Acute Combined systolic and Diastolic CHF Ischemic cardiomyopathy - EF 20% CAD s/p PCI/multiple stents HTN HLD DM2 - A1c 7.1, has Hyperglycemia Echo: The Left Ventricle is borderline dilated. The ejection fraction is severely impaired. LV ejection fraction estimated at 20%. There is severe global hypokinesis of the left ventricle. Doppler and Color Flow revealed no significant aortic regurgitation. There is no significant aortic valvular stenosis. Doppler and Color-flow revealed trace to mild mitral regurgitation. Doppler and Color Flow revealed mild tricuspid regurgitation. Estimated PAP 38 mmHg. Plan: Outpatient cardiology follow-up needed Optimize CHF medications Diabetic care Greater than 30 minutes spent on d/c home with outpatient cardiology follow up Discharge Information Condition at Discharge: Improved Follow Up: Weeks Disposition/Orders: D/C to Home Scheduled Aspirin (Aspirin Ec) 325 Mg Tablet.dr, 1 TAB PO DAILY for cardiac, #100 Ref 3 Prescribed by: INGRID CAAL on 04/03/19 1259 Last Taken: Unknown Dose on 03/21/22 0900 Last Action: Continued on 03/22/22 1656 by BEATRIZ FLYNN MD Atorvastatin Calcium (Atorvastatin Calcium) 40 Mg Tablet, 40 MG PO QHS for CHF/HLD for 30 Days, #30 Ref 5 Prescribed by: ROSA ELENA HEDRICK MD on 03/24/22 1330 Carvedilol (Carvedilol ) 3.125 Mg Tablet, 3.125 MG PO BIDWMEALS for CHF for 30 Days, #60 Ref 5 Prescribed by: ROSA ELENA HEDRICK MD on 03/24/22 1330 Empagliflozin (Jardiance) 10 Mg Tablet, 10 MG PO DAILY for DM2/CHF for 30 Days, #30 Ref 5 Prescribed by: ROSA ELENA HEDRICK MD on 03/24/22 1330 Furosemide (Furosemide) 40 Mg Tablet, 1 TAB PO DAILY for CHF for 30 Days, #30 Ref 5 Prescribed by: ROSA ELENA HEDRICK MD on 03/24/22 1330 Losartan Potassium (Losartan Potassium ) 25 Mg Tablet, 25 MG PO DAILY for CHF for 30 Days, #30 Ref 5 Prescribed by: ROSA ELENA HEDRICK MD on 03/24/22 1330 Spironolactone (Spironolactone) 25 Mg Tablet, 1 TAB PO DAILY for CHF for 30 Days, #30 Ref 5 Prescribed by: ROSA ELENA HEDRICK MD on 03/24/22 1330 Scheduled PRN Acetaminophen (Acetaminophen) 500 Mg Tablet, 500 MG PO PRN Q6HRS PRN for PAIN, (Reported) Entered as Reported by: ISIDRO PHILIP on 03/22/221215 Last Action: Reviewed on 03/22/221218 by ISIDRO PHILIP Justicifation of Admission Dx: Justifications for Admission: Justification of Admission Dx: Yes Angina: Unstable Variant ROSA ELENA HEDRICK MD March 24, 2022 13:38
--- NOTE | 2022-03-24 14:10 | NUR ---
Discharge Note: [facility] Discharge instructions and discharge home medications reviewed with Patient and a copy given. All questions have been answered and understanding verbalized. The following instructions and handouts were given: carvedilol, atorvastatin, Jardiance, losartan, furosemide, spironolactone. Patient discharged to home with self care via wheelchair.
[2022-03-25] MEDS ORDERED: POTASSIUM CHLORIDE 20 MEQ TABLET.ER. PO SCH (08:00)
--- NOTE | 2022-03-25 08:18 | EKG ---
[facility] [address] [place] [address] Test Date: 2022-03-22 Test Time: 08:45:25 Pat Name: SAMSON HOPKINS Department: Room: [facility] Gender: M Delivery Crew Member: : 1970 Requested By: MARY KAY DELGADO Order Number: [id number] Reading MD: Jesús Wesley MD Measurements Intervals [place] Rate: 103 P: 47 OR: 158 QRS: 174 QRSD: 82 T: 42 QT: 312 QTc: 411 Interpretive Statements SINUS TACHYCARDIA LIMB LEAD MISPLACEMENT NON-SPECIFIC ST/T CHANGES Electronically Signed On 03-30-2022 11:36:50 CDT by Jesús Wesley MD
[2022-03-25] MEDS ORDERED: SPIRONOLACTONE 25 MG TABLET PO SCH (09:00)
[2022-03-25] MEDS ORDERED: FUROSEMIDE 40 MG TABLET. PO SCH (09:00)
== END 2022-03-24 14:10 | disposition home or self-care (01) | DRG 291 ==
LOC: ER 08:27 → 6 SOUTH 10:05
PROVIDERS: ADMIT Family Medicine; ATTEND Family Medicine
DX: I11.0 Hypertensive heart disease with heart failure (principal); I50.43 Acute on chronic combined systolic (congestive) and diastolic (congestive) heart failure; J96.00 Acute respiratory failure, unspecified whether with hypoxia or hypercapnia; E11.65 Type 2 diabetes mellitus with hyperglycemia; E78.5 Hyperlipidemia, unspecified; F17.210 Nicotine dependence, cigarettes, uncomplicated; I25.10 Atherosclerotic heart disease of native coronary artery without angina pectoris; I25.5 Ischemic cardiomyopathy; Z82.49 Family history of ischemic heart disease and other diseases of the circulatory system; Z91.14 Patient's other noncompliance with medication regimen; Z91.19 Patient's noncompliance with other medical treatment and regimen; Z95.5 Presence of coronary angioplasty implant and graft; F41.9 Anxiety disorder, unspecified; K21.9 Gastro-esophageal reflux disease without esophagitis; M19.90 Unspecified osteoarthritis, unspecified site
CPT/HCPCS: 36415; 71046; 80048; 80061; 82962; 83036; 83735; 83880; 84443; 84484; 85025; 93005; 93306; J1815; J1940; J3475; 99285-25; C8929; G0378